=== PATIENT | female | born 1970 | race Caucasian/White ===

== ENCOUNTER → 2018-04-25 17:57 | Outpatient (CLI) | payer OTHER, SELFPAY ==
--- NOTE | 2018-04-25 18:15 | MRI_ITS ---
STUDY: MRI CERVICAL SPINE WITHOUT CONTRAST REASON FOR EXAM: Female, 47 years old. Increasing neck pain, bilat arm numbness(L and gt;R). TECHNIQUE: Standardized fat and water weighted pulse sequences were obtained in the sagittal and axial planes. COMPARISON: November 22, 2016 FINDINGS: Normal foramen magnum and brainstem-cervical cord junction. Normal craniovertebral junction. Normal anterior atlantoaxial articulation. Normal odontoid process. Normal cervical lordosis. Normal vertebral bodies and posterior osseous elements. C2-3: Normal endplates. Normal disc height, signal and morphology. Normal central canal and intervertebral neural foramina. C3-4: There is minimal disc space narrowing and endplate spondylosis. There is a minimal disc osteophyte complex, uncovertebral and facet sonography without significant central canal or foraminal post. Findings are stable since the prior examination. C4-5: There is mild disc space narrowing and endplate spondylosis. There is a minimal disc osteophyte complex, uncovertebral and facet adenopathy without significant central canal or foraminal stenosis. C5-6: There is moderate disc space narrowing and endplate spondylosis. There is minimal disc osteophyte complex and uncovertebral arthropathy without significant central canal or foraminal stenosis. Findings are stable since the prior examination. C6-7: There is moderate disc space narrowing and endplate spondylosis. There is minimal disc osteophyte complex and uncovertebral arthropathy without significant central canal or foraminal stenosis. Findings are stable since the prior examination. C7-T1: Normal endplates. Normal disc height, signal and morphology. Normal central canal and intervertebral neural foramina. Normal cervical cord. Normal visualized soft tissue structures. MRI/Spine Cervical (Routine) IMPRESSION: Stable multilevel degenerative changes. Electronically Signed: Gerda Walton MD at 16:08 EDT Tel , Service support ,
== END ==
LOC: MRI 17:57
PROVIDERS: Family Provider Family Medicine; PCP Family Medicine; Visit Provider Anesthesiology Pain Medicine
DX: M54.2 Cervicalgia (principal); M79.603 Pain in arm, unspecified
CPT/HCPCS: 72141

== ENCOUNTER 2018-08-23 02:53 | Emergency (ER) | payer OTHER, SELFPAY ==
--- NOTE | 2018-08-23 04:27 | MRI_ITS ---
STUDY: MRI LUMBAR SPINE WITHOUT CONTRAST REASON FOR EXAM: Female, 47 years old. Right leg numbness and foot paralysis. TECHNIQUE: Standardized fat and water weighted pulse sequences were obtained in the sagittal and axial planes. COMPARISON: None FINDINGS: T12-L1: Normal endplates. Normal disc height, signal and morphology. Normal bilateral facet joints. Normal central canal and bilateral lateral recesses. Normal bilateral intervertebral neural foramina. There is an exaggerated lumbar lordosis. There is no substantial scoliosis. Normal conus medullaris that terminates at the L1-2: Normal endplates. Normal disc height, signal and morphology. Normal bilateral facet joints. Normal central canal and bilateral lateral recesses. Normal bilateral intervertebral neural foramina. L2-3: Normal endplates. Normal disc height, signal and morphology. Normal bilateral facet joints. Normal central canal and bilateral lateral recesses. Normal bilateral intervertebral neural foramina. L3-4: Normal endplates. Normal disc height, signal and morphology. Normal bilateral facet joints. Normal central canal and bilateral lateral recesses. Normal bilateral intervertebral neural foramina. L4-5: There is mild annular disk bulge and osteophyte complex. There is moderately severe degenerative arthropathy of the facet joints. There is thickening of the ligamentum flavum. Bilateral neuroforamina are narrowed without MR evidence for nerve impingement. There is no significant acquired central canal stenosis. L5-S1: There is mild annular disk bulge and osteophyte complex. There is moderately severe degenerative arthropathy of the facet joints. Bilateral neuroforamina are narrowed without MR evidence for nerve impingement. There is no significant acquired central canal stenosis. Normal visualized sacral ala. Normal visualized paraspinous soft tissue structures. MRI/Spine Lumbar (Routine) IMPRESSION: Multilevel degenerative disc disease and degenerative arthropathy of the lumbar spine with neural foraminal narrowing. There is no definite nerve impingement. Electronically Signed: Floresita Fernandez MD at 5:29 EST , Service support ,
--- NOTE | 2018-08-23 07:10 | ED.DCSUM_ITS ---
- ER Visit Summary Date of Service: 08/23/18 Chief Complaint: Right leg numbness History of Present Illness: The patient is a 47 F who presents with right leg numbness. She had an injection of some sort about 10-12 hours before presentation here. She is not exactly certain what this was. It was done by marty sevilla. She had some right leg numbness afterwards which was attributed to possibly some injection into the nerve. She was told that it should resolve likely by 6 hours. She returned because she still has right leg numbness. She now states that she cannot move her foot or walk. Physical Examination: Afebrile vitals are normal Moist mucous membranes Heart regular rate and rhythm Lungs are clear Patient has 3 out of 5 strength with hip flexion hip extension knee flexion and knee extension on the right she has normal movement with dorsiflexion plantarflexion or extensor hallucis longus she reports only slight pressure sensation with light touch to her foot or leg she states that she could not feel sharp pinprick from the needle and she did not not withdraw has brisk capillary refill and an easily palpable dorsalis pedis pulse Test Results: MRI of the lumbar spine was obtained which shows multilevel degenerative disc disease no definite nerve impingement Emergency Department Course and Treatment: I discussed this patient with Dr. Branham. Apparently the patient had actually hip bursa injections. He notes that it is possible that she got some of the anesthetic into her femoral nerve which could explain her symptoms and recommended supportive care. On reevaluation the patient states she still cannot move her foot however was observed to be able to sit up on the side of the bed and kick her legs back and forth and was witnessed to be moving her foot with dorsiflexion and plantarfle xion. She states she would rather go home when we discussed hospital observation. She will follow-up with her pain management physician and she was discharged. Treatment Plan: [] Disposition: Discharge Impression: Right leg weakness after hip bursa injection This note was generated with [employer] dictation software. It may contain incorrect words, spelling, and punctuation that were not noted in review of the chart prior to signing ED Disposition - Plan for ED Patient: Referrals: Suhail Lambert MD [Primary Care Provider] -
--- NOTE | 2018-08-23 07:10 | ED.DEP ---
ED Disposition - Plan for ED Patient: Referrals: Suhail Lambert MD [Primary Care Provider] - Arpan Branham MD [STAFF PHYSICIAN] -
== END 2018-08-23 07:25 | disposition home or self-care (01) ==
PROVIDERS: Emergency Provider Emergency Medicine; Family Provider Family Medicine; PCP Family Medicine
DX: R29.898 Other symptoms and signs involving the musculoskeletal system (principal); R20.0 Anesthesia of skin
CPT/HCPCS: 72148; 99282

== ENCOUNTER → 2018-10-30 08:16 | Outpatient (CLI) | payer OTHER, SELFPAY ==
[2017-10-06 09:36] VITALS: BMI 42.5
[2018-10-30 09:10] LABS: Amphetamine Urine VISTA NEGATIVE (<1000 ng/mL); Barbiturate Urine VISTA NEGATIVE (< 200 ng/mL); Benzodiazepine Urine VISTA NEGATIVE (< 200 ng/mL); Cocaine Urine VISTA NEGATIVE (< 300 ng/mL); Ecstacy Urine VISTA NEGATIVE (< 500 ng/mL); Methadone Urine VISTA NEGATIVE (< 300 ng/mL); PCP Urine VISTA NEGATIVE (< 25 ng/mL); THC Urine VISTA POSITIVE (< 50 ng/mL); Vista UDS pH Range 6
== END ==
LOC: LAB 08:18
PROVIDERS: Family Provider Family Medicine; PCP Family Medicine; Referring Provider Anesthesiology Pain Medicine; Visit Provider Anesthesiology Pain Medicine
DX: F11.20 Opioid dependence, uncomplicated (principal)
CPT/HCPCS: 80307

== ENCOUNTER → 2019-01-23 | Outpatient (CLI) | payer OTHER, SELFPAY ==
[2017-10-06 09:36] VITALS: BMI 42.5
[2019-01-23 13:24] LABS: Anion Gap 4 (5-15); BUN 12 mg/dL (7-18); BUN/Creat Ratio 14.3 RATIO (10-20); Calcium,Total 8.7 mg/dL (8.5-10.1); Chloride 107 mmol/L (98-107); Cholesterol 160 mg/dL (200); Creatinine, Serum 0.84 mg/dL (0.55-1.02); EST Glomerular Filtration Rate 77 mL/min (>60); Est Glom Filt Rate - Afr Amer 94 mL/min (>60); Glucose 97 mg/dL (74-106); High Density Lipoprotein 59 mg/dL; Potassium 3.7 mmol/L (3.5-5.1); Sodium Level 139 mmol/L (136-145); Thyroid Stim Hormone (TSH) 1.07 uIU/mL (0.358-3.74); Triglycerides 110 mg/dL; Very Low Density Lipoprotein 22 mg/dL (5-40)
== END | disposition home or self-care (01) ==
LOC: MFPLAB 10:23
PROVIDERS: Family Provider Family Medicine; PCP Family Medicine; Referring Provider Family Medicine; Visit Provider Family Medicine
DX: I10 Essential (primary) hypertension (principal); E66.01 Morbid (severe) obesity due to excess calories
CPT/HCPCS: 36415; 80048; 80061; 84443

== ENCOUNTER → 2019-03-26 | Outpatient (CLI) | payer OTHER, SELFPAY ==
[2017-10-06 09:36] VITALS: BMI 42.5
[2019-03-26 10:23] LABS: Absolute Lymphocyte Count 2.42 X10^3/ul (0.83-4.51); Absolute Neutrophil Count 3.3 X10^3/uL (2.0-7.7); Basophil# 0.03 X10^3/uL; Basophil% 0.5 % (0-1); Eosinophil# 0.24 X10^3/uL; Eosinophils% 3.8 % (0-5); Hematocrit 40.2 % (37-47); Lymphocyte # 2.42 X10^3/ul (4.0); Lymphocyte % 37.9 % (19-41); Mean Corp Hgb Conc 32.3 g/gl (32-36); Mean Corpuscular Hgb 27.8 pg (27.0-32.0); Mean Corpuscular Volume 86.1 fL (81-99); Mean Platelet Vol. 11.2 fl (6.2-12.0); Monocyte# 0.41 X10^3/uL; Monocyte% 6.4 % (0-10); Neutrophil # 3.28 X10^3/uL (2.7-7.7); Neutrophil % 51.2 % (47-70); Platelet Count 255 K/mm3 (150-450); RBC Distribution Width CV 14.2 % (11.6-14.6); RBC Distribution Width SD 44.9 fl (35.1-43.9); Red Blood Count 4.67 M/mm3 (4.2-5.4); White Blood Count 6.4 K/mm3 (4.4-11.0)
[2019-03-26 10:27] LABS: POSITIVE COUNT NO; POSITIVE DIFFERENTIAL NO; POSITIVE MORPHOLOGY NO
[2019-03-26 10:41] LABS: AST(SGOT) 15 U/L (15-37); Alanine Aminotransfer ALT/SGPT 24 U/L (13-56); Albumin, Serum 3.3 g/dL (3.2-5.0); Alkaline Phosphatase 61 U/L (45-117); Anion Gap 3 (5-15); BUN 9 mg/dL (7-18); BUN/Creat Ratio 11.2 RATIO (10-20); Bilirubin, Direct 0.13 mg/dL (0.00-0.30); Calcium,Total 8.7 mg/dL (8.5-10.1); Chloride 107 mmol/L (98-107); EST Glomerular Filtration Rate 82 mL/min (>60); Est Glom Filt Rate - Afr Amer 99 mL/min (>60); Globulin 3.5 g/dL (2.2-4.2); Glucose 83 mg/dL (74-106); Protein, Total 6.8 g/dL (6.4-8.2); Sodium Level 137 mmol/L (136-145)
[2019-03-26 11:49] LABS: Hepatitis B Surface Antibody Non-Reactive; Hepatitis B Surface Antigen Non-Reactive (Nonreactive); Hepatitis C Antibody Non-Reactive (Nonreactive)
[2019-03-29 05:07] LABS: QNTFERON TB Mitogen Value > 10.00 IU/mL (.); QNTFERON TB Nil Value 0.02 IU/mL (.); QNTFERON TB1+ Ag Value 0.02 IU/mL (.); QNTFERON TB2+ Ag Value 0.02 IU/mL (.)
[2019-03-29 08:06] LABS: Hepatitis B Core AB IgM Negative (Negative); QNTIFERON TB Positive Criteria Negative (Negative)
== END | disposition home or self-care (01) ==
LOC: MTLAB 09:10
PROVIDERS: Family Provider Family Medicine; PCP Family Medicine; Referring Provider Nurse Practitioner Family; Visit Provider Nurse Practitioner Family
DX: L40.0 Psoriasis vulgaris (principal); Z79.899 Other long term (current) drug therapy
CPT/HCPCS: 36415; 80048; 80076; 85025; 86480; 86705; 86706; 86803; 87340

== ENCOUNTER → 2019-04-02 | Outpatient (CLI) | payer OTHER, SELFPAY ==
[2017-10-06 09:36] VITALS: BMI 42.5
--- NOTE | 2019-04-02 09:11 | RAD_ITS ---
STUDY: X-RAY - PELVIS REASON FOR EXAM: Female, 48 years old. Hip arthrosis, right greater than left TECHNIQUE: 2 frontal views of the pelvis were performed COMPARISON: None. FINDINGS: The bones of the pelvis are intact and located. There are moderate right and mild left degenerative hip changes. There is bilateral loss of femoral head sphericity with abnormal head neck junctions. SI joints are intact. There is no intestinal obstruction. Mineralization is normal. RAD/Pelvis 1 or 2 Views IMPRESSION: 1. Bilaterally abnormal hips, possible CAM impingement. Orthopedic referral is advised. Electronically Signed: Gio Sousa, at 19:35 EDT Tel , Service support ,
== END | disposition home or self-care (01) ==
LOC: RAD 09:08
PROVIDERS: Family Provider Family Medicine; PCP Family Medicine; Referring Provider Chiropractor; Visit Provider Chiropractor
DX: M16.0 Bilateral primary osteoarthritis of hip (principal)
CPT/HCPCS: 72170

== ENCOUNTER → 2019-11-01 14:38 | Outpatient (CLI) | payer OTHER, SELFPAY ==
[2019-11-01 14:30] VITALS: BMI 42.5
--- NOTE | 2019-11-01 14:39 | RAD_ITS ---
STUDY: X-RAY - LUMBOSACRAL SPINE REASON FOR EXAM: Female, 48 years old. Pain. TECHNIQUE: 6 view(s) of the lumbosacral spine were obtained. COMPARISON: None FINDINGS: Normal lumbar lordosis. There is a levoscoliosis of the convexity at L2-3. There is mild anterolisthesis of L4 on L5 and L5 on S1. The alignment is otherwise preserved. There is no alteration in alignment with flexion or extension both of which appear minimal. Normal vertebral bodies and endplates. Normal disc space heights. No spine fracture. There is diffuse degenerative facet disease. Normal bilateral sacral ala, sacroiliac joints, and visualized sacrum. Normal visualized soft tissue structures. RAD/L/S Spine Comp/w Bending Views IMPRESSION: Scoliosis and degenerative changes of the lumbar spine. Electronically Signed: Slick De Guzman DO at 21:31 EST Tel [phone], Service support ,
--- NOTE | 2019-11-01 14:39 | RAD_ITS ---
STUDY: X-RAY - PELVIS AND RIGHT HIP REASON FOR EXAM: Pain. TECHNIQUE: 2 views of the pelvis and hip. COMPARISON: Radiographs 04/02/2019. FINDINGS: Normal visualized soft tissue structures. Normal bilateral iliac wings, sacroiliac joints and visualized sacrum. Normal bilateral superior and inferior pubic rami. Normal pubic symphysis. Normal bilateral ischial tuberosities. There is severe joint space loss at the superior aspect of the right hip joint with marginal osteophytes of the right femoral head and subchondral cystic change/eburnation. There is also advanced arthrosis of the contralateral left hip. RAD/HIP, UNI W/ Pelvis 2-3 Views IMPRESSION: Advanced right hip arthrosis. Electronically Signed: Ankush Jacobson MD at 10:29 EST Tel , Service support ,
== END ==
LOC: HPRAD 14:39
PROVIDERS: PCP Family Medicine; Referring Provider Orthopaedic Surgery; Visit Provider Orthopaedic Surgery
DX: M54.5 Low back pain (principal); M25.551 Pain in right hip
CPT/HCPCS: 72114; 73502

== ENCOUNTER → 2020-01-21 14:54 | Outpatient (CLI) | payer OTHER, SELFPAY ==
[2020-01-21 12:16] VITALS: BMI 43.2
[2020-01-21 18:11] LABS: Anion Gap 6 (5-15); BUN 14 mg/dL (7-18); BUN/Creat Ratio 17.2 RATIO (10-20); Chloride 105 mmol/L (98-107); Cholesterol 167 mg/dL (200); Creatinine, Serum 0.81 mg/dL (0.55-1.02); EST Glomerular Filtration Rate 80 mL/min (>60); Est Glom Filt Rate - Afr Amer 97 mL/min (>60); Glucose 93 mg/dL (74-106); High Density Lipoprotein 54 mg/dL; Potassium 3.9 mmol/L (3.5-5.1); Sodium Level 138 mmol/L (136-145); Thyroid Stim Hormone (TSH) 0.75 uIU/mL (0.358-3.74); Triglycerides 85 mg/dL; Very Low Density Lipoprotein 17 mg/dL (5-40)
== END ==
LOC: MFPLAB 14:55
PROVIDERS: PCP Family Medicine; Visit Provider Family Medicine
DX: I10 Essential (primary) hypertension (principal); E66.01 Morbid (severe) obesity due to excess calories
CPT/HCPCS: 36415; 80048; 80061; 84443

== ENCOUNTER 2020-03-12 13:00 | Outpatient (RCR) | payer OTHER, SELFPAY ==
[2020-01-21 12:16] VITALS: BMI 43.2
--- NOTE | 2020-01-22 14:03 | HP.PTEVAL ---
Patient's Visit Information JANNETTE VIEIRA is a 49 year old F referred to Physical Therapy by Dr. Denice Cutler DO with a diagnosis of R hip pain. Date of Evaluation: 01/22/20 Physical Therapist: Vadim Calderon, DPT, OCS, CSCS - Visit Plan Frequency: 3x /Week Duration: 4-6 Weeks Plan: 3x/week for 4-6 weeks for pool based. hip strength emphasizing IR adn adduction, hip stabs, core strength, stretch HS, adductors, external rotators and postural focus/gait training. Progress to I in pool as exit strategy as patient requires hip surgery but not sure when it will occur. - Subjective Dr. Cutler sent over. B hip pain for a number of years. Sent to Dr. Rodriguez by [facility]. Both hips are degenerating really bad. No cartilage left on the right side. Walking changes have made LB and neck hurt. Doctor said she needed to lose weight adn do physical therapy. Gait has always been off. R hip is most painful and needs surgery there. Wants to get healthy first.Hard to get up off toilet. Can only lie on stomach. Pain is on side of hip and up into LB and in groin. Hard to lift leg to get into car. Pain is worse with temperature drop today and with period. 9/10 crushing paina nd sometime it wants to go out. Sitting is just a tinge of pain, sitting alot and getting up will ache. L leg feels longer adn knee can lock up. Morning after sleeping is worse. Is on medical marijuana. Sleeps one hour at atime. Would like to get 6 hours solid. Has had injections in hip before and it helps. Swimming really helps. Feels better in the pool in the summer. Can't do steps unless she has to. Better in good weather. Not employed. Needs to take care of self. - Pain R hip Pain Intensity (Out of 10): 1 Pain Intensity Range: 1, 9 - Objective Walks slowly and with B trendelenberg and massive external rotation at hips. Trasnfers slowly out of chair appearing stiff adn needing to use UE. Supine table transfers slow but I. Stiff all over. HS mod tight B at -25 90/90 test. Abduction to 15 B. Unable to touch knees together actively in sitting. LB AROM min deficits in all directions and stiff but no pain. AROM hips external rotation hypermobile adn IR barely to neutral and very weak. flexion to 90 active adn 120 passive. Passive IR to neutral only and very painful, exteernal rotation fulla dn without pain. ext to neutral only B. reflexes 1/3 patella and achilles. Sensation LE WNL to gross light touch. Strength hip IR 3-, ext rotation 3+ B, flexion 3- R and 4- L, ext 3 B. Knee ext adn flexion 4- B. ankle strength 3+ B inv/ev/DF. + FADDIR R>L, slight pain with PARMINDER OP B. - Goals Goal 1:: Pt feel pain 0-3/10 at worst adn 70% better r hip pain. Goal Time Frame: 4-6 Weeks Goal 2:: Sleep without interruption for 4 hours. Goal Time Frame: 4-6 Weeks Goal 3:: Steps reciprocally with one rail without increased pain. Goal Time Frame: 4-6 Weeks Goal 4:: I approp HEP to [facility] to be able to have surgery needed. Goal Time Frame: 4-6 Weeks - Rehabilitation Potential Physical Therapy Diagnosis: R hip pain requiring surgery and needs strength, ROM and gait training. Rehabilitation Potential: Fair - Anticipated Interventions Patient/Client Instruction: Educate patient on: Condition, Plan of Care For the Purpose of:: To decrease pain, To increase ROM, To improve muscle performance and motor function, To increase tolerance to activity/condition/position, To improve ability of physical actions for home/community/work/leisure, To improve gait and locomotor functions Therapeutic Exercise to Include: Strength training, Postural training, Flexibilty training, Gait and locomotor training, In an aquatic setting, Passive ROM, Active ROM For the Purpose of:: To decrease pain, To increase ROM, To improve muscle performance and motor function, To increase tolerance to activity/condition/position, To improve ability of physical actions for home/community/work/leisure, To improve gait and locomotor functions Thank you for the opportunity to evaluate your patient. For Medicare and Medicare HMO plans, please review the plan of care and approve it. It will need to be FAXED BACK to us at [phone] for Medicare purposes. For Medicare only, by signing this I certify the plan of care. Please let me know if there are questions or concerns regarding this plan of care. Physician Signature: Date:
--- NOTE | 2020-02-12 11:33 | HP.PTREVAL ---
Dr. Denice Cutler, DO, It has been my pleasure to treat JANNETTE VIEIRA over the last 10 visits for R hip pain. Please see the progress note below for an update on the physical therapy plan of care! Subjective: Better. On period today so is a little worse then has been. But overall very happy with progress and needs more. LB feels better, circulation is better. Able to go up steps 2x at home which is a huge improvement. Pain in last 4 days was 6/10 at worst with weather change. Yesterday was best it felt and was minimal pain and better mechanics. Sleep is better with activity but overall sleep is never great. Objective/Function: Walks with very little antalgia but still wide AILYN. Gets up from chair with UE and smoother than previously. Stiff at first walking but smooths out nicely. ROM not vastly different than eval. strenth in hips at 4- abd and ext and 4 felxion, 4 knee flexion and ext B. PROGRESS IS SLOW BUT STEADY. APPROPRIATE TO CONTINUE WITH FAIR PROGNOSIS. Plan Plan: 3X/WEEK FRO 3-4 WEEKF TO CONTINUE POOL, WORK ON HIP rom AND STRETCHING, CORE AND le STRENGTH AND PROGRESS TO I POOL PROGRAM. POSSIBLE LAND AFTER NEXT SESSION OF POOL DEPENDING ON SURGERY. Goals Goal 1:: Pt feel pain 0-3/10 at worst adn 70% better r hip pain. Goal Time Frame: 4-6 Weeks Goal Progress: Progressing Goal 2:: Sleep without interruption for 4 hours. Goal Time Frame: 4-6 Weeks Goal Progress: nconsistent Goal 3:: Steps reciprocally with one rail without increased pain. Goal Time Frame: 4-6 Weeks Goal Progress: 2 rails today, progress. Goal 4:: I approp HEP to progresss trength to be able to have surgery needed. Goal Time Frame: 4-6 Weeks Goal Progress: Progressing Goal 5:: 35/80 LEFS to show improved function. Goal Time Frame: 2-4 Weeks Goal Progress: NEW GOAL Goal 6:: Exit chair without UE I Goal Time Frame: 2-4 Weeks Goal Progress: NEW GOAL Anticipated Interventions Patient/Client Instruction: Educate patient on: Condition, Plan of Care For the Purpose of:: To decrease pain, To increase ROM, To improve muscle performance and motor function, To increase tolerance to activity/condition/position, To improve ability of physical actions for home/community/work/leisure, To improve gait and locomotor functions Therapeutic Exercise to Include: Strength training, Postural training, Flexibilty training, Gait and locomotor training, In an aquatic setting, Passive ROM, Active ROM For the Purpose of:: To decrease pain, To increase ROM, To improve muscle performance and motor function, To increase tolerance to activity/condition/position, To improve ability of physical actions for home/community/work/leisure, To improve gait and locomotor functions Please do not hesitate to contact me at [phone] by phone or if you have questions or concerns regarding this new plan of care! Sincerely, Vadim Calderon, DPT, OCS, CSCS
--- NOTE | 2020-03-12 13:35 | HP.PTDCSUM_ITS ---
It has been my pleasure to treat JANNETTE VIEIRA referred by Dr. Denice Cutler DO, with the diagnosis of R hip pain for a total of 20 visit(s). Discharge Date: 03/12/20 Please see the following information for a summary of their discharge status. Subjective: Muscles are more usable but they hate me. Able to do more things that she has not done in a while especially sexually. Things are going the right way. Missed a couple appointments due to father dying(had to pickling [employer] today). Doing some home exercises from [place] also. Knows pool is helpful and has lost 8 # total. Muscles still get sore often especially in larger leg muscles. More csious of biomechanics. Sleep is not great but that is normal for her. Hip and sacrum R are worst of pain. Will contact Dr. Rodriguez for f/u. R hip Pain Intensity (Out of 10): 7 Lumbar Spine Pain Intensity (Out of 10): 7 LLE Pain Intensity (Out of 10): 2 % Improvement: 40 Objective/Function: 8 min late. Walks with wide AILYN but can do narrow BOSwith V C. Needs UE to exit chair, needs rail on step and prefers R. Still very slow getting around and admits she could ex herself at local pool but it would be hard Goal 1:: Pt feel pain 0-3/10 at worst adn 70% better r hip pain. Goal Progress: muscle pain. Goal 2:: Sleep without interruption for 4 hours. Goal Progress: Not Progressing Goal 3:: Steps reciprocally with one rail without increased pain. Goal Progress: Not Progressing Goal 4:: I approp [facility]P to [facility] to be able to have surgery needed. Goal Progress: [place] Goal 5:: 35/80 LEFS to show improved function. Goal Progress: Not Progressing Goal 6:: Exit chair without UE I Goal Progress: Not Progressing Plan: Pt to contact doctor regarding f/u for other options as improvement is slow. Still to ex in [place] community and call if concerns. Discharge Comments: Pt to schedule with docotor adn continue in community pool I. If there are questions or concerns regarding this patient's physical therapy, please feel free to call me at [phone]. Thank you for the referral of this patient. Sincerely, Vadim Calderon, DPT, OCS, CSCS
== END 2020-03-12 19:00 | disposition home or self-care (01) ==
LOC: PT 13:00
PROVIDERS: PCP Family Medicine; Referring Provider Orthopaedic Surgery; Visit Provider Orthopaedic Surgery
DX: M16.11 Unilateral primary osteoarthritis, right hip (principal); M54.10 Radiculopathy, site unspecified
CPT/HCPCS: 97113; 97162; 97164

== ENCOUNTER → 2020-03-18 09:25 | Outpatient (CLI) | payer OTHER, SELFPAY ==
[2020-01-21 12:16] VITALS: BMI 43.2
[2020-03-18 12:06] LABS: Absolute Lymphocyte Count 2.76 X10^3/uL (0.83-4.51); Absolute Neutrophil Count 2.8 X10^3/uL (2.0-7.7); Basophil# 0.07 X10^3/uL; Basophil% 1.1 % (0-1); Eosinophil# 0.37 X10^3/uL; Eosinophils% 5.7 % (0-5); Hematocrit 40.7 % (37-47); Lymphocyte # 2.76 X10^3/ul (4.0); Lymphocyte % 42.2 % (19-41); Mean Corp Hgb Conc 31.9 g/dL (32-36); Mean Corpuscular Hgb 28.4 pg (27.0-32.0); Mean Corpuscular Volume 89.1 fL (81-99); Mean Platelet Vol. 11.8 fl (6.2-12.0); Monocyte# 0.53 X10^3/uL; Monocyte% 8.1 % (0-10); NRBC Flagged by Analyzer 0 % (0-5); Neutrophil # 2.79 X10^3/uL (2.7-7.7); Neutrophil % 42.6 % (47-70); Platelet Count 245 K/mm3 (150-450); RBC Distribution Width CV 13.8 % (11.6-14.6); RBC Distribution Width SD 44.2 fl (35.1-43.9); Red Blood Count 4.57 M/mm3 (4.2-5.4); White Blood Count 6.5 K/mm3 (4.4-11.0)
[2020-03-18 12:22] LABS: ALB/GLOB Ratio 1.1 RATIO (0.9-2.4); AST(SGOT) 15 U/L (15-37); Alanine Aminotransfer ALT/SGPT 26 U/L (13-56); Albumin, Serum 3.6 g/dL (3.2-5.0); Alkaline Phosphatase 60 U/L (45-117); Anion Gap 4 (5-15); BUN 13 mg/dL (7-18); BUN/Creat Ratio 17.2 RATIO (10-20); Calcium,Total 8.9 mg/dL (8.5-10.1); Chloride 106 mmol/L (98-107); Creatinine, Serum 0.76 mg/dL (0.55-1.02); EST Glomerular Filtration Rate 87 mL/min (>60); Est Glom Filt Rate - Afr Amer 105 mL/min (>60); Globulin 3.4 g/dL (2.2-4.2); Glucose 90 mg/dL (74-106); Potassium 3.7 mmol/L (3.5-5.1); Sodium Level 138 mmol/L (136-145)
[2020-03-21 12:07] LABS: QNTFERON TB Mitogen Value > 10.00 IU/mL (.); QNTFERON TB Nil Value 0.02 IU/mL (.); QNTFERON TB1+ Ag Value 0.02 IU/mL (.); QNTFERON TB2+ Ag Value 0.02 IU/mL (.)
[2020-03-21 14:57] LABS: QNTIFERON TB Positive Criteria Negative (Negative)
== END ==
PROVIDERS: PCP Family Medicine; Referring Provider Physician Assistant; Visit Provider Physician Assistant
DX: L40.0 Psoriasis vulgaris (principal); Z79.899 Other long term (current) drug therapy
CPT/HCPCS: 36415; 80053; 85025; 86480

== ENCOUNTER 2020-04-08 10:04 | Outpatient (RCR) | payer OTHER, SELFPAY ==
[2020-03-27 09:21] VITALS: BMI 43.2
== END 2020-04-08 19:00 | disposition home or self-care (01) ==
LOC: PT 10:04
PROVIDERS: PCP Family Medicine; Referring Provider Orthopaedic Surgery; Visit Provider Orthopaedic Surgery
DX: Z00.00 Encounter for general adult medical examination without abnormal findings (principal)

== ENCOUNTER 2020-05-15 13:30 | Outpatient (RCR) | payer OTHER, SELFPAY ==
[2020-03-27 09:21] VITALS: BMI 43.2
--- NOTE | 2020-04-03 08:45 | HP.PTEVAL_ITS ---
Patient's Visit Information JANNETTE VIEIRA is a 49 year old F referred to Physical Therapy by Dr. Denice Cutler DO with a diagnosis of R hip OA. Date of Evaluation: 04/02/20 Physical Therapist: Franki Presley DPT - Visit Plan Frequency: 2x /Week Duration: 6 Weeks Plan: Start with ROM, strengthening, gait and aerobic fitness in aquatic setting. Focus being strengthening and R hip ROM, but also in attempt to educate on wt. lose through exercise. Pt. has started intermittent fasting as well. - Subjective Pt. is here today for her initial evaluation with diagnosis of R hip OA. Pt. reports having increased R hip pain both laterally and in groin with walking and with getting up after prolonged sitting. Pt. reports that she really needs to have a R MAKAYLA and is scheduled to see Dr. Gamble in May. Her physician would like her to continue to strength and lose wt. in order to promote better outcome as she is pretty deconditioned due to her limited tolerance to mobility with her hip. Pt. reports difficulty with walking, standing, sleeping. She has been doing some aquatic exercises on her own, but reports accessibility to pool is difficult. Pt. is hopeful to increase strength, ROM and decrease some pain in order to get ready for potential R MAKAYLA, but is also increase my quality of life. - Pain R hip Pain Intensity (Out of 10): 4 Pain Intensity Range: 3, 8 - Objective POSTURE: Pt. has sway back posture in stance. Pt. has L lateral lean with R hip ER positioning. Pt. attempts to off load RLE when able. PALPATION: Pt. has increased post/lateral pain (piriformis and greater trochanter pain), pt. has C sign pain as well. NEURO: normal bilaterally, normal sensation and normal DTR bilaterally. ROM: L hip: flexion 110deg, abd 45deg, ER 30deg, IR 15deg. R hip- flexion 90deg, abd 30deg, ext- neutral, ER 30deg, IR 0. Pt. is very tight and rigid inlcuding pain with any rotation of R hip. MMT: LLE- 5/5 throughout, ext 4/5 hip abd. RLE- ankle 5/5 throughout; knee 5-/5 throughout; R hip- flexion 4/5, abd 4/5, ext 4/5 (minimal motion), ER/IR not tested. GAIT: Pt. ambulates without AD, but has very antalgic pattern. Minimal R hip extension noted, has increased trunk rotation to make up for this. She has limited hi flexion of RLE as well. Pt. reports increased pain in R hip throughout gait cycle. STAIRS: step up pattern loading LLE only, use of BHR. - Special Tests R Hip Scour: Positive R Hip PARMINDER - Intraarticular Pathology: Positive R Hip FADDIR - Labrum: Positive - Goals Goal 1:: LTG: Pt. to be I with HEP. Goal Time Frame: 4-6 Weeks Goal 2:: LTG: Pt. to walk with improved pattern with 0-2/10 pain in R hip. Goal Time Frame: 4-6 Weeks Goal 3:: STG: Pt. to sleep throughout the night without increase in symptoms. Goal Time Frame: 2-4 Weeks Goal 4:: LTG: Pt. to have increased RLE strength by 1/2 grade of all effected m usculature. Goal Time Frame: 4-6 Weeks Goal 5:: LTG: Pt. to have increased R hip ROM by 25% allowing for better ROM outcomes with surgical intervention. Goal Time Frame: 4-6 Weeks - Rehabilitation Potential Physical Therapy Diagnosis: Pt. has signs and symptoms consistent with R hip OA. Pt. has marked hypombility, marked RLE weakness and difficulty with gait. Pt. reports relief with aquatic exercises, but has had increased pain since stopping the exercises. Pt. is hopeful to reduce symptoms in order to get ready for potential hip replacement later this year. Rehabilitation Potential: Good - Anticipated Interventions Patient/Client Instruction: Educate patient on: Condition, Plan of Care, Risk Factors, Benefits of Fitness Program For the Purpose of:: To improve health and function, To foster healthy habits, To improve decision making, To facilitate caregiver knowledge, To improve self management, To prevent re-injury, To improve ability to perform tasks related to life management, To improve tolerance to ADL's Therapeutic Exercise to Include: Strength training, Endurance training, Balance training, Coordination, Body mechanics, Flexibilty training, Gait and locomotor training, In an aquatic setting, Passive ROM, Active ROM, Dynamic Lumbar Stabilization For the Purpose of:: To decrease pain, To decrease swelling/inflammation, To increase ROM, To improve nutrient delivery to tissue, To increase oxygenation perfusion, To improve muscle performance and motor function, To improve ability to perform ADL's, To improve gait and locomotor functions, To improve health of tissue, To decrease soft tissue restriction, To increase flexibility/ROM, To improve endurance, To improve balance Thank you for the opportunity to evaluate your patient. For Medicare and Medicare HMO plans, please review the plan of care and approve it. It will need to be FAXED BACK to us at [phone] for Medicare purposes. For Medicare only, by signing this I certify the plan of care. Please let me know if there are questions or concerns regarding this plan of care. Physician Signature: Date:
== END 2020-05-15 19:00 | disposition home or self-care (01) ==
LOC: PT 13:30
PROVIDERS: PCP Family Medicine; Referring Provider Orthopaedic Surgery; Visit Provider Orthopaedic Surgery
DX: M16.11 Unilateral primary osteoarthritis, right hip (principal)
CPT/HCPCS: 97113; 97161

== ENCOUNTER → 2020-06-06 07:05 | Outpatient (CLI) | payer OTHER, SELFPAY ==
[2020-05-28 08:16] VITALS: BMI 35.9
--- NOTE | 2020-06-06 07:06 | CT_ITS ---
STUDY: CT SCAN RIGHT LOWER EXTREMITY RIGHT REASON FOR EXAM: Female, 49 years old. Right hip pain, Patrice plasty planning, right hip osteoarthritis. RADIATION DOSAGE (If Supplied By Facility): CTDIvol = ( 14.07 ) mGy, DLP = ( 934.89 ) mGycm. Individualized dose optimization techniques were used for this CT.? TECHNIQUE: Multiple axial tomographic images of the right hip and right knee were obtained. Coronal and sagittal reconstruction was obtained. COMPARISON: None. FINDINGS: Marked degree of joint space narrowing and osteoarthritis involving the right hip joint with a subchondral cystic changes as well as small cystic changes in the superior lateral aspect of the acetabulum. There is evidence of a degenerative spur formation along the medial and lateral aspects of the femoral head as well as the spur along the superior lateral aspect of the acetabulum. Similar changes are seen in the left hip joint. Limited imaging of the knee joint demonstrates no significant abnormalities. CT/Extremity Lower without Contra IMPRESSION: Marked degree of joint space narrowing and degenerative changes involving both hip joints worse on the right side. Electronically Signed: Yusef Trinidad, at 8:11 EDT , Service support ,
== END ==
PROVIDERS: PCP Family Medicine; Referring Provider Orthopaedic Surgery; Visit Provider Orthopaedic Surgery
DX: M16.11 Unilateral primary osteoarthritis, right hip (principal)
CPT/HCPCS: 73700

== ENCOUNTER 2020-06-24 05:20 | Day surgery (SDC) | payer OTHER, SELFPAY ==
[2020-05-28 08:16] VITALS: BMI 35.9
--- NOTE | 2020-05-28 08:25 | HP_ITS ---
Intake Vital Signs 05/28/20 Height 5 ft 10 in 05/28/20 Weight: 250 lb 05/28/20 Weight: 250 lb 05/28/20 BMI 43.2 Intake Visit Reasons: RIGHT HIP Accompanied by: Self Is patient in pain?: Yes Pain scale (1-10): 8 Allergies codeine Allergy (Verified 05/28/20 08:08) Hives Medications lisinopril 10 mg-hydrochlorothiazide 12.5 mg tablet 1 tab PO DAILY tab 05/28/20 [History Confirmed 05/28/20] omeprazole 40 mg capsule,delayed release ea PO 05/28/20 [History Confirmed 05/28/20] PFSH Medical History (Updated 10/06/17 @ 09:44 by Alicia Nicolas) Hypertension (Chronic) Surgical History (Updated 10/06/17 @ 09:44 by Alicia Nicolas) History of appendectomy (Inactive) Social History (Updated 05/28/20 @ 10:[address] Sidney Hernández DO) Smoking Status: Former smoker quit date: 09/19/00 alcohol intake: current HPI RIGHT HIP: Surgical H&P: Yes Details: Parts of this documentation were recorded by a scribe, this documentation accurately reflects the service provided and the decisions made by me, Dr. Sidney Hernández DO 05/28/20 0753. JANNETTE VIEIRA is a 49 year old F here today to discuss surgery for her right hip. Pain has been ongoing for years. Patient has been going to physical therapy, stretching for four months as well as working on her weight loss. Patient has been successful with her weight loss. Pain is located lateral, deep glute. Previously has tried steroid injections. ROS Musc Reports system reviewed and no additional complaints, except as docu, Reports abnormal walking, Reports joint pain, Reports back pain, Reports joint swelling, Denies numbness, Reports radiating pain into limb, Reports stiffness Skin/Breast Reports system reviewed and no additional complaints, except as docu, Denies dry skin, Denies redness, Denies lesions, Denies new lesions, Denies non-healing lesions, Denies itching, Denies rash, Denies skin ulcer, Denies sores, Denies skin swelling, Denies wounds Neuro Yes system reviewed and no additional complaints, except as docu, Yes abnormal walking, No numbness Ortho Exam Right Hip Skin: No Ecchymosis, No soft tissue swelling, No Erythema internal rotation @90 degree flexion: 0 degrees external rotation @90 degree extension: 80 degrees Special Tests: Yes TTP Greater Troch, No TTP Greater sciatic notch HIP: Skin is intact without concerning lesions erythema or ecchymosis or mass upper groin pain with zero degrees internal rotation. 80 external rotation with lateral pain weakness withHip flexion unable to flex hip against gravity intactSensation to light sensation 2 out of 4 pedal pulse Supplemental Info 11/01/2019X-ray right hip:Advanced right hip arthrosis with [id number] superiorly subchondral sclerosis and marginal osteophytes Assessment & Plan Problems 1. Primary osteoarthritis of right hip M16.11 Plan Educated patient has quite a bit of arthritis present and bursitis. Advised patient would benefit from surgical intervention. May still have stiffness even after surgery. Educated about the implant and MAKOplasty robotic arm for surgery. Discussed and educated on hip precautions for 3 months post op. Discussed risks of surgery: s/s of infection and blood clot. Recovery period 2-3 months you often feel better than before surgery and improve for up to a year. After surgery will wear compression stockings, taking a blood thinner, and avoiding NSAIDS. Can take Tylenol instead. Will also order therapy after surgery. Will take ATB's prophylactically for life before any dental work. Can swim again after three weeks after surgery. All questions answered. Patient in agreement of plan. 1. This patient has exhausted all conservative/nonoperative treatment measures to include physical therapy, epidural steroid injections and medications therefore we will recommend surgical intervention. 2. Over 30 minutes was spent in consultation with this patient. 4. The patient will obtain preoperative medical lab work, EKG and chest x-ray at a schedule pre-admission testing visit. 5. All questions were answered. The procedure was discussed in detail with the use of plastic models. Surgical consent was signed and reviewed. The patient verbalized understanding and agreed to comply with the treatment plan formulated. Risks, benefits and alternatives of surgery reviewed including but not limited to bleeding, infection, nerve, artery and/or tissue damage, fracture, VTE, leg length discrepancy, dislocation, need for hip precautions, continued pain and expected post-operative course. Coding Level of Care Code Off vis,est,level 3 Diagnoses Primary osteoarthritis of right hip M16.11 ??Osteoarthritis type: primary 05/28/20 1037 <Electronically signed by Sidney Borrus o DO> Date _ Sidney Hernández DO
--- NOTE | 2020-06-16 08:30 | EKG12_ITS ---
Test Reason : PRE OP Blood Pressure : / mmHG Vent. Rate : 078 BPM Atrial Rate : 078 BPM P-R Int : 122 ms QRS Dur : 082 ms QT Int : 384 ms P-R-T Axes : 024 017 055 degrees QTc Int : 437 ms Normal sinus rhythm with sinus arrhythmia Low voltage QRS Borderline ECG Confirmed by AMY RUSSELL, PURA ([id number]), associate entertainment editor THOMAS OSEI ([id number]) on 06/17/2020 11:23:22 AM Referred By: Sidney Hernández Confirmed By:PURA REYES MD
[2020-06-16 09:31] LABS: Absolute Lymphocyte Count 2.27 X10^3/uL (0.83-4.51); Absolute Neutrophil Count 2.9 X10^3/uL (2.0-7.7); Basophil# 0.04 X10^3/uL; Basophil% 0.7 % (0-1); Eosinophil# 0.25 X10^3/uL; Eosinophils% 4.2 % (0-5); Hematocrit 40.1 % (37-47); Hemoglobin 12.6 g/dL (12.0-15.0); Lymphocyte # 2.27 X10^3/ul (4.0); Lymphocyte % 38.1 % (19-41); Mean Corp Hgb Conc 31.4 g/dL (32-36); Mean Corpuscular Hgb 27.6 pg (27.0-32.0); Mean Corpuscular Volume 87.9 fL (81-99); Mean Platelet Vol. 12.1 fl (6.2-12.0); Monocyte# 0.51 X10^3/uL; Monocyte% 8.6 % (0-10); NRBC Flagged by Analyzer 0 % (0-5); Neutrophil # 2.88 X10^3/uL (2.7-7.7); Neutrophil % 48.2 % (47-70); Platelet Count 229 K/mm3 (150-450); RBC Distribution Width CV 14.5 % (11.6-14.6); RBC Distribution Width SD 47.2 fl (35.1-43.9); Red Blood Count 4.56 M/mm3 (4.2-5.4)
[2020-06-16 09:43] LABS: Partial Thromboplast Time 27.1 Seconds (24.1-36.2); Prothrombin Time (Protime)PT. 12.9 SECONDS (11.7-14.9)
[2020-06-16 10:18] LABS: Anion Gap 5 (5-15); BUN 15 mg/dL (7-18); BUN/Creat Ratio 19.8 RATIO (10-20); Calcium,Total 8.9 mg/dL (8.5-10.1); Chloride 104 mmol/L (98-107); Creatinine, Serum 0.76 mg/dL (0.55-1.02); EST Glomerular Filtration Rate 87 mL/min (>60); Est Glom Filt Rate - Afr Amer 105 mL/min (>60); Glucose 89 mg/dL (74-106); Potassium 3.4 mmol/L (3.5-5.1); Sodium Level 138 mmol/L (136-145)
[2020-06-16 10:23] LABS: Magnesium 2.2 mg/dL (1.6-2.6)
[2020-06-24] VITALS (15 sets, daily range): BP systolic 89–105; BP diastolic 56–70; PULSE 51–96; RESP 14–18; TEMP 35.6–37; O2SAT 97–100; BMI 34.8
[2020-06-24 05:46] LABS: Internal QC Validated? YES +Cl - CLEAR BKGD; Pregnancy, Urine Negative Negative
[2020-06-24] MEDS: Lactated Ringers 1,000 ML 100 ML IV (06:00)
[2020-06-24] MEDS: Lactated Ringers 1,000 ML 125 ML IV (06:00)
[2020-06-24] MEDS: Lactated Ringers 1,000 ML 999 ML IV (06:25)
[2020-06-24] MEDS: Acetaminophen 500 MG Tablet 1000 MG PO (06:32)
[2020-06-24] MEDS: Celecoxib 200 MG Capsule 400 MG PO (06:33)
[2020-06-24] MEDS: Gabapentin 600 MG Tablet PO (06:33)
[2020-06-24] MEDS: Scopolamine 1mg/72hr Patch 1 PATCH TRANSDERM. (06:34)
[2020-06-24 06:55] LABS: Bedside Glucose 80 mg/dL (70-110)
--- NOTE | 2020-06-24 07:23 | PCM.HP.BLA ---
History and Physical Date of Admission: 06/24/20 Intake Vital Signs 05/28/20 Height 5 ft 10 in 05/28/20 Weight: 250 lb 05/28/20 Weight: 250 lb 05/28/20 BMI 43.2 Intake Visit Reasons: RIGHT HIP Accompanied by: Self Is patient in pain?: Yes Pain scale (1-10): 8 Allergies codeine Allergy (Verified 05/28/20 08:08) Hives Medications lisinopril 10 mg-hydrochlorothiazide 12.5 mg tablet 1 tab PO DAILY tab 05/28/20 [History Confirmed 05/28/20] omeprazole 40 mg capsule,delayed release ea PO 05/28/20 [History Confirmed 05/28/20] ON LICENSE OF [facility] Medical History (Updated 10/06/17 @ 09:44 by Alicia Nicolas) Hypertension (Chronic) Surgical History (Updated 10/06/17 @ 09:44 by Alicia Nicolas) History of appendectomy (Inactive) Social History (Updated 05/28/20 @ 10:[address] Sidney Hernández DO) Smoking Status: Former smoker quit date: 09/19/00 alcohol intake: current HPI RIGHT HIP: Surgical H&P: Yes Details: Parts of this documentation were recorded by a scribe, this documentation accurately reflects the service provided and the decisions made by me, Dr. Sidney Hernández DO 05/28/20 0753. JANNETTE VIEIRA is a 49 year old F here today to discuss surgery for her right hip. Pain has been ongoing for years. Patient has been going to physical therapy, stretching for four months as well as working on her weight loss. Patient has been successful with her weight loss. Pain is located lateral, deep glute. Previously has tried steroid injections. ROS Musc Reports system reviewed and no additional complaints, except as docu, Reports abnormal walking, Reports joint pain, Reports back pain, Reports joint swelling, Denies numbness, Reports radiating pain into limb, Reports stiffness Skin/Breast Reports system reviewed and no additional complaints, except as docu, Denies dry skin, Denies redness, Denies lesions, Denies new lesions, Denies non-healing lesions, Denies itching, Denies rash, Denies skin ulcer, Denies sores, Denies skin swelling, Denies wounds Neuro Yes system reviewed and no additional complaints, except as docu, Yes abnormal walking, No numbness Ortho Exam Right Hip Skin: No Ecchymosis, No soft tissue swelling, No Erythema internal rotation @90 degree flexion: 0 degrees external rotation @90 degree extension: 80 degrees Special Tests: Yes TTP Greater Troch, No TTP Greater sciatic notch HIP: Skin is intact without concerning lesions erythema or ecchymosis or mass upper groin pain with zero degrees internal rotation. 80 external rotation with lateral pain weakness withHip flexion unable to flex hip against gravity intactSensation to light sensation 2 out of 4 pedal pulse Supplemental Info 11/01/2019X-ray right hip:Advanced right hip arthrosis with [id number] superiorly subchondral sclerosis and marginal osteophytes Assessment & Plan Problems 1. Primary osteoarthritis of right hip M16.11 Plan Educated patient has quite a bit of arthritis present and bursitis. Advised patient would benefit from surgical intervention. May still have stiffness even after surgery. Educated about the implant and MAKOplasty robotic arm for surgery. Discussed and educated on hip precautions for 3 months post op. Discussed risks of surgery: s/s of infection and blood clot. Recovery period 2-3 months you often feel better than before surgery and improve for up to a year. After surgery will wear compression stockings, taking a blood thinner, and avoiding NSAIDS. Can take Tylenol instead. Will also order therapy after surgery. Will take ATB's prophylactically for life before any dental work. Can swim again after three weeks after surgery. All questions answered. Patient in agreement of plan. 1. This patient has exhausted all conservative/nonoperative treatment measures to include physical therapy, epidural steroid injections and medications therefore we will recommend surgical intervention. 2. Over 30 minutes was spent in consultation with this patient. 4. The patient will obtain preoperative medical lab work, EKG and chest x-ray at a schedule pre-admission testing visit. 5. All questions were answered. The procedure was discussed in detail with the use of plastic models. Surgical consent was signed and reviewed. The patient verbalized understanding and agreed to comply with the treatment plan formulated. Risks, benefits and alternatives of surgery reviewed including but not limited to bleeding, infection, nerve, artery and/or tissue damage, fracture, VTE, leg length discrepancy, dislocation, need for hip precautions, continued pain and expected post-operative course. Coding Level of Care Code Off vis,est,level 3 Diagnoses Primary osteoarthritis of right hip M16.11 ??Osteoarthritis type: primary I have re-examined the patient. There are no clinical changes since date of exam
[2020-06-24] MEDS: Cefazolin 2 GM in 0.9% Normal Saline 100 ML IV (07:37)
--- NOTE | 2020-06-24 10:31 | PCM.DC.ORTHO ---
Discharge Diet: No Restrictions Weight Bearing Status: Weight bearing as tolerated Call your doctor if you observe: Shortness of breath, Chest pain Additional Instructions: Begin daily showering warm water antibacterial soap postop day #3( 72hrs Post-operatively) and then daily. Leave the dressing on for 72 hours postoperatively then may remove prior to first shower and change dressing daily after this until no drainage for 2 consecutive days then may leave open to air. Follow hip precautions that were reviewed in hospital. Wear compression stockings, may remove at night. Start physical therapy as directed in hospital. Call Dr. Hernández's office with any concerns. Allergies/Adverse Reactions: Allergies codeine Allergy (Verified 06/10/20 09:10) Hives Medications to take at Discharge lisinopril 10 mg-hydrochlorothiazide 12.5 mg tablet 1 tab PO DAILY tab 05/28/20 omeprazole 40 mg capsule,delayed release 40 mg PO DAILY 05/28/20 Acetaminophen [Tylenol Extra Strength] 1,000 mg PO Q6H PRN #100 tab 06/24/20 Apixaban [Eliquis] 2.5 mg PO BID #42 tab 06/24/20 Cephalexin [Keflex] 1,000 mg PO Q8 #4 cap 06/24/20 Ondansetron HCl [Zofran] 4 mg PO Q6H PRN PRN 5 Days #20 tab 06/24/20 Oxycodone [Oxyir] 5 mg PO Q4H PRN PRN #60 tablet 06/24/20 The following prescriptions were given: Apixaban [Eliquis] 2.5 mg PO BID #42 tab Transmission Status: Pending to [facility] Cephalexin [Keflex] 1,000 mg PO Q8 #4 cap Transmission Status: Pending to [facility] Oxycodone [Oxyir] 5 mg PO Q4H PRN PRN #60 tablet PRN Reason: Pain Score 6-10/10 Transmission Status: [facility] Acetaminophen [Tylenol Extra Strength] 1,000 mg PO Q6H PRN #100 tab Transmission Status: Pending to [facility] Ondansetron HCl [Zofran] 4 mg PO Q6H PRN PRN 5 Days #20 tab PRN Reason: Nausea Transmission Status: Pending to [facility] Primary Care Physician: Alicia Cobian MD [Primary Care Provider] - Test Results: Test results from this visit will be discussed in further detail at your follow-up appointment, if applicable. Please Follow Up With: Sidney Hernández DO - 2 weeks
--- NOTE | 2020-06-24 10:32 | OP.PCM_ITS ---
Report of Operation Date of Procedure: 06/24/20 Description of Surgical Findings:: Preoperative diagnosis: Right hip DJD Postoperative diagnosis: Same Procedure: CT-guided Makoplasty assisted right total hip arthroplasty Implants: [place] Accolade II stem size 6, 132 degree neck angle 0 neck length 56 mm Trident II acetabular shell with 20 mm cancellous screw 36 mm ceramic head Anesthesia: Spinal EBL: 175 cc Complications: None Condition: Stable to PACU Indication for procedure: This is a 49-year-old female who has had long-standing arthrosis of the hip who has failed conservative treatment and wished to undergo total hip arthroplasty. We did discuss operative versus nonoperative intervention including risks of bleeding, infection , nerve artery tissue damage, need for further surgery, fracture, leg length discrepancy dislocation blood clot and need for postoperative physical therapy and postoperative expectations. An informed consent was signed. Procedure: Patient was met in the preoperative holding area once again the operative extremity was identified by both patient and physician and was marked. Patient was met by anesthesia spinal anesthesia was started. patient was then positioned in the lateral decubitus position on a well-padded pegboard with an axillary roll. All bony prominences were checked and padded. The patient was prepped and draped in the usual sterile fashion. A timeout was called to ensure the proper patient procedure and extremity were being contemplated. Anatomic landmarks were palpated and marked for a standard posterior lateral approach. Prior to this the ASIS was palpated and 3 fingerbreadths proximal to this 3 pins were placed at a 45 degree angle into the iliac crest with good purchase, stab incisions were made with a 15 blade into the skin prior to placement. The Makoplasty array was then secured. A 10 blade scalpel was used to make a posterior incision through the skin and subcutaneous tissue. retractors were used and electrocautery was used to maintain meticulous hemostasis and dissect full-thickness flaps until the gluteal fascia was reached. The gluteal fascia was incised in line with the gluteal fibers. The bursal tissue was then freed from the underside and a Charnley retractor was placed. The femoral trochanteric checkpoint was placed and leg length was assessed using the trochanteric checkpoint and an EKG lead that was placed on the knee prior to prepping the leg .the fat pad was then elevated off of the external rotators with electrocautery and the external rotators were dissected off of the greater trochanter including the piriformis and were tagged with #1 Ethibond for later repair. The joint capsule opened with posterior trapdoor technique. The hip was surgically dislocated. The measurement on the preoperative CT from the top of the lesser trochanter to the femoral neck cut was marked Hohmann was placed around the lesser trochanter. A neck cutting guide was used to ann the neck with a Bovie and an oscillating saw was used complete the femoral neck cut. The femoral head was then removed and sized. We then turned our attention to the acetabulum. A Bovie was used to make a perforation in the anterior joint capsule and a Ordoñez retractor was placed this was repeated in the 6 o'clock position and a wide aliya was placed there. With a long handled knife the labral and pulvinar tissue were removed. We then registered the acetabulum with the pointing array and confirmed our landmarks. Once the socket was thoroughly prepared and labral tissue pulmonary was removed we single reamed with the robotic arm. We then used the robotic arm to position the acetabular implant and impacted it into place under robotic guidance. We then proceeded to place a posterior superior screw by drilling first measuring and inserting the screw. We then inserted a trial liner. And turned our attention back to the femur at this point a femoral elevator was used. As well as a pointed wide Hohmann around the lesser trochanter and a Hohmann to help retract the gluteus medius. A box chisel was used to remove excess lateral neck followed by a canal finder and a lateralizing reamer. This was followed by sequential broaches. Attention was made of the version within the canal based on preoperative templating. Once the final broach was seated we then trialed reduced the hip it was determined that a 132 degree neck angle with a 0 neck length was the appropriate size. We then checked stability with shuck testing as well as flexion and internal rotation. then proceeded with hip extension and checked leg lengths at the knees and heels as well as with the trochanteric checkpoint and knee EKG lead. At this point trials were removed. A liner was inserted to the cup. The femoral stem was inserted. We re-trialed and then proceeded to impact the femoral head onto the Vincent taper. We then surgically reduce the hip check stability again and leg lengths and were satisfied. Betadine rinse was allowed to sit for 5 minutes while everyone changed their gloves. Thorough irrigation was performed. Followed by closure of the external rotators with #2 FiberWire followed by closure of gluteal fascia with #1 Ethibond. 0 Vicryl fat stitches and 2-0 Vicryl subcutaneous stitches and jennifer in the skin. A pulls were placed in the pin sites over the iliac crest with Xeroform 4 x 4 and OpSite. dressing was applied to incisional area with Mepilex Ag and an abduction pillow was placed. Patient tolerated the procedure well there was no intraoperative complications all counts were correct and the patient was brought back to the PACU in stable condition
--- NOTE | 2020-06-24 11:10 | RAD_ITS ---
STUDY: X-RAY - PELVIS AND RIGHT HIP REASON FOR EXAM: Postop right hip arthroplasty. TECHNIQUE: 2 views of the pelvis and hip. COMPARISON: Radiographs 11/01/2019. FINDINGS: There is postoperative gas in the soft tissues. Normal visualized bilateral iliac wings, sacroiliac joints and visualized sacrum. Normal bilateral superior and inferior pubic rami. There are minor degenerative changes of the pubic symphysis. Normal bilateral ischial tuberosities. There is a right hip arthroplasty without evidence of complication. RAD/Hip Min 2 Views (Portable) IMPRESSION: Uncomplicated right hip arthroplasty. Electronically Signed: Anksuh Jacobson MD at 15:07 EDT Tel , Service support ,
[2020-06-24] MEDS: Ketorolac 30 MG/ML Syringe IV (11:59)
[2020-06-24] MEDS: dexAMETHasone 10 MG/ML Vial IV (12:03)
[2020-06-24] MEDS: Cefazolin 1 GM/50 ML BAG IV (13:45)
== END 2020-06-24 16:41 | disposition home or self-care (01) ==
LOC: SDC 05:21 → AC 05:21
PROVIDERS: Anesthesiology; PCP Family Medicine; Referring Provider Orthopaedic Surgery; Visit Provider Orthopaedic Surgery
PROC: 8E0Y0CZ Robotic Assisted Procedure of Lower Extremity, Open Approach (ICD-10-PCS; CPT 27130; principal; 2020-06-24 07:00)
DX: M16.11 Unilateral primary osteoarthritis, right hip (principal); Z11.59 Encounter for screening for other viral diseases; I10 Essential (primary) hypertension; K21.9 Gastro-esophageal reflux disease without esophagitis; G25.81 Restless legs syndrome; Z79.899 Other long term (current) drug therapy; Z87.891 Personal history of nicotine dependence
CPT/HCPCS: 01214; 27130; 36415; 73502; 80048; 81025; 82962; 83735; 85025; 85610; 85730; 86850; 86900; 86901; 87077; 87081; 87635; 93005; 97162; 97166; C1713; C1776; C9803; J7120; J2405; U0003

== ENCOUNTER 2020-08-07 07:00 | Outpatient (RCR) | payer OTHER, SELFPAY ==
[2020-05-28 08:16] VITALS: BMI 35.9
[2020-06-24 06:00] VITALS: BMI 34.8
--- NOTE | 2020-06-26 15:45 | HP.PTEVAL_ITS ---
Patient's Visit Information JANNETTE VIEIRA is a 49 year old F referred to Physical Therapy by Dr. Sidney Hernández DO with a diagnosis of R MAKAYLA sajan. Date of Evaluation: 06/26/20 Physical Therapist: Franki Presley DPT - Visit Plan Frequency: 2x /Week Duration: 4 Weeks Plan: Plan to inc R hip ROM, inc RLE strength, inc ability to safely ambulate while normalizing gait pattern, inc balance, and facilitate dec in R hip pain. - Subjective Pt presents this date for eval 2 days s/p R MAKAYLA postero-lateral approach. Received personal training and pool prehab starting in January and continued until the day before surgery. Pt utilizes FWW for ambulation. States that her R hip pain inc when she has been sitting for too long, when she is standing up, and when she has been walking for too long. She feels like she is able to move and get around better now than prior to surgery, just mostly feels weak in her RLE. Pt has future plans to have a L MAKAYLA as well but has yet to figure out an exact time frame. Has taken pain pills PRN over the last couple days for pain but states she mostly uses medical marijuana edibles PRN for pain and believes they help more. - Pain L hip Pain Intensity (Out of 10): 1 Pain Intensity Range: 1, 6 - Objective POSTURE: Dec WB on RLE. PALPATION: Pt reports feeling tender over incision. WNL otherwise. ROM: Dec R hip ROM in all planes. WNL elsewhere. MMT: Dec RLE strength, not formally assessed d/t pt apprehension. NEURO: WNL. GAIT: Ambulates utilizing FWW. Dec christian, dec RLE WB, dec LLE step length, forward trunk. Step-to pattern. Min A w/ bed mobility to help manage RLE going from sitting on EOB into supine. - Goals Goal 1:: LTG: Pt to be I w/ HEP. Goal Time Frame: 4-6 Weeks Goal 2:: STG: Pt will display inc RLE strength within 1/2 grade of LLE. Goal Time Frame: 2-4 Weeks Goal 3:: LTG: Pt will display inc RLE strength equal or greater than LLE. Goal Time Frame: 4-6 Weeks Goal 4:: LTG: Pt will be able to safely ambulate at least 100 feet w/out use of AD. Goal Time Frame: 4-6 Weeks Goal 5:: LTG: Pt will report having 0/10 pain in R hip. Goal Time Frame: 4-6 Weeks - Rehabilitation Potential Physical Therapy Diagnosis: S/s consistent w/ R MAKAYLA. Pt displays dec R hip ROM, dec RLE strength, dec ability to safely ambulate, and inc R hip pain. PT intervention indicated to address stated deficits and improve R hip ROM, inc RLE strength, inc ability to safely ambulate w/out FWW, and facilitate a dec in R hip pain. Rehabilitation Potential: Good - Anticipated Interventions Patient/Client Instruction: Educate patient on: Condition, Plan of Care, Risk Factors, Benefits of Fitness Program For the Purpose of:: To improve safety, To foster healthy habits, To improve decision making, To prevent re-injury Therapeutic Exercise to Include: Strength training, Endurance training, Balance training, Flexibilty training, Gait and locomotor training, Passive ROM, Active ROM For the Purpose of:: To decrease pain, To increase ROM, To improve muscle performance and motor function, To increase tolerance to activity/condition/position, To improve gait and locomotor functions, To increase flexibility/ROM, To improve endurance, To improve balance, To improve safety with gait Thank you for the opportunity to evaluate your patient. For Medicare and Medicare HMO plans, please review the plan of care and approve it. It will need to be FAXED BACK to us at [phone] for Medicare purposes. For Medicare only, by signing this I certify the plan of care. Please let me know if there are questions or concerns regarding this plan of care. Physician Signature: Date:
--- NOTE | 2020-08-07 07:46 | HP.PTDCSUM_ITS ---
It has been my pleasure to treat JANNETTE VIEIRA referred by Dr. Sidney Hernández DO, with the diagnosis of R MAKAYLA sajan for a total of 10 visit(s). Discharge Date: 08/07/20 Please see the following information for a summary of their discharge status. Subjective: Pt. reports I am doin gmuch better. Pt. reports no pain currently. She is HEP compliant. She has started pool exercies and land exercises alternating. L hip Pain Intensity (Out of 10): 6 R hip Pain Intensity (Out of 10): 0 % Improvement: 90 Objective/Function: TU.1sec. ROM: R hip- flexion 100deg, ext 10deg. MMT: RLE: knee ext 48.1lbs, flexion 45.2lbs; hip- flexion 18lbs, ext 32lbs. GAIT: Pt. ambulates without AD with marked lateral deviation, but reports no pain. She has less R hip ER, but marked L hip ER and L hip pain reported. STAIRS: PT. is able to complete with reciprocal pattern, but does have increased pain on L side with ascending/descending. Use of BHR. WOMAC: 79. Pt. is scheduled to have her L hip replaced in September. Goal 1:: LTG: Pt to be I w/ HEP. Goal Progress: Goal Met Goal 2:: STG: Pt will display inc RLE strength within 1/2 grade of LLE. Goal Progress: Goal Met Goal 3:: LTG: Pt will display inc RLE strength equal or greater than LLE. Goal Progress: Goal Met Goal 4:: LTG: Pt will be able to safely ambulate at least 100 feet w/out use of AD. Goal Progress: Goal Met Goal 5:: LTG: Pt will report having 0/10 pain in R hip. Goal Progress: Goal Met Plan: DC to HEP both in gym and aquatics. Pt. to continue to work on hip abd/flexion strengthening and progress gait tolerance. I talked with personal lines account executive her at gym and she will implement these activities into her program. Discharge Comments: Pt. will be DC from PT at this point in time. She is overall doing well. Pt. reportsbeing 90% better overall in her R hip,but he left hip is bothering her. She is scheduled to have a L MAKAYLA in September of 2020. Pt. is set up with an HEP for both land and aquatics with focus on functional strengtheing and ROM of R hip. I talked with her personal lines account executive to also target these areas as well. If there are questions or concerns regarding this patient's physical therapy, please feel free to call me at [phone]. Thank you for the referral of this patient. Sincerely, JUVE VaughanT
== END 2020-08-07 19:00 | disposition home or self-care (01) ==
LOC: PT 07:00
PROVIDERS: PCP Family Medicine; Referring Provider Orthopaedic Surgery; Visit Provider Orthopaedic Surgery
DX: Z47.1 Aftercare following joint replacement surgery (principal)
CPT/HCPCS: 97110; 97161

== ENCOUNTER → 2020-09-18 06:55 | Outpatient (CLI) | payer OTHER, SELFPAY ==
--- NOTE | 2020-09-18 07:07 | CT_ITS ---
STUDY: CT LEFT HIP WITHOUT CONTRAST REASON FOR EXAM: Female, 49 years old. Left hip pain. RADIATION DOSAGE (If Supplied By Facility): CTDIvol = ( 12.86 ) mGy, DLP = ( 906.72 ) mGycm TECHNIQUE: Thin section transaxial imaging of the hip was obtained, with sagittal and coronal reconstructed images. Individualized dose optimization techniques were used for this CT. COMPARISON: 06/24/2020 FINDINGS: There is severe degenerative arthrosis in the left hip joint. There is subchondral fracture of the upper part of the femoral head. There is right hip arthroplasty in good alignment. There is no abnormality in the adjacent soft tissues. There is no evidence of fracture. Normal visualized superior and inferior pubic rami and ischial tuberosities. Severe degenerative in the right medial femorotibial joint and mild changes in the patellofemoral joint are noted. Moderate degenerative in the left medial and lateral femorotibial joints and severe changes in the left patellofemoral joint are noted. CT/Extremity Lower without Contra IMPRESSION: Severe degenerative arthrosis of the left hip. Subchondral fracture of the upper part of the femoral head. 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 Electronically Signed: Jesse Zambrano, at 10:29 EST Tel , Service support ,
== END ==
PROVIDERS: PCP Family Medicine; Referring Provider Orthopaedic Surgery; Visit Provider Orthopaedic Surgery
DX: M16.12 Unilateral primary osteoarthritis, left hip (principal)
CPT/HCPCS: 73700

== ENCOUNTER 2020-10-07 08:39 | Day surgery (SDC) | payer OTHER, SELFPAY ==
[2020-07-07 16:01] VITALS: BMI 35.9
--- NOTE | 2020-09-26 08:43 | EKG12_ITS ---
Test Reason : PREOP Blood Pressure : / mmHG Vent. Rate : 077 BPM Atrial Rate : 077 BPM P-R Int : 132 ms QRS Dur : 078 ms QT Int : 388 ms P-R-T Axes : 040 024 060 degrees QTc Int : 439 ms Normal sinus rhythm Normal ECG Confirmed by ADAIR RUSSELL, SONIA ([id number]), brands editor THOMAS OSEI ([id number]) on 09/29/2020 9:46:15 AM Referred By: Sidney Hernández Confirmed By:SONIA BORRERO MD
[2020-09-26 09:59] LABS: Absolute Lymphocyte Count 2.61 X10^3/uL (0.83-4.51); Absolute Neutrophil Count 2.7 X10^3/uL (2.0-7.7); Basophil# 0.05 X10^3/uL; Basophil% 0.8 % (0-1); Eosinophil# 0.34 X10^3/uL; Eosinophils% 5.5 % (0-5); Hematocrit 36.6 % (37-47); Hemoglobin 11.3 g/dL (12.0-15.0); Lymphocyte # 2.61 X10^3/ul (4.0); Lymphocyte % 42.4 % (19-41); Mean Corp Hgb Conc 30.9 g/dL (32-36); Mean Corpuscular Hgb 25.1 pg (27.0-32.0); Mean Corpuscular Volume 81.2 fL (81-99); Mean Platelet Vol. 12.6 fl (6.2-12.0); Monocyte# 0.47 X10^3/uL; Monocyte% 7.6 % (0-10); NRBC Flagged by Analyzer 0 % (0-5); Neutrophil # 2.67 X10^3/uL (2.7-7.7); Neutrophil % 43.5 % (47-70); Platelet Count 312 K/mm3 (150-450); RBC Distribution Width CV 15.5 % (11.6-14.6); RBC Distribution Width SD 45.1 fl (35.1-43.9); Red Blood Count 4.51 M/mm3 (4.2-5.4); White Blood Count 6.2 K/mm3 (4.4-11.0)
[2020-09-26 10:06] LABS: Prothrombin Time (Protime)PT. 12.4 SECONDS (11.7-14.9)
[2020-09-26 10:07] LABS: Partial Thromboplast Time 26.8 Seconds (24.1-36.2)
[2020-09-26 10:30] LABS: Anion Gap 5 (5-15); BUN 16 mg/dL (7-18); BUN/Creat Ratio 21.9 RATIO (10-20); Chloride 104 mmol/L (98-107); Creatinine, Serum 0.73 mg/dL (0.55-1.02); EST Glomerular Filtration Rate 91 mL/min (>60); Est Glom Filt Rate - Afr Amer 110 mL/min (>60); Glucose 79 mg/dL (74-106); Potassium 3.9 mmol/L (3.5-5.1); Sodium Level 138 mmol/L (136-145)
[2020-09-26 10:34] LABS: Magnesium 2.1 mg/dL (1.6-2.6)
[2020-10-07] VITALS (11 sets, daily range): BP systolic 87–141; BP diastolic 57–102; PULSE 49–80; RESP 14–18; TEMP 36.3–37.2; O2SAT 98–100; BMI 34.0
--- NOTE | 2020-10-07 07:15 | PCM.HP.BLA ---
History and Physical Date of Admission: 10/07/20 Intake Intake Visit Reasons: left hip Accompanied by: Self Is patient in pain?: Yes Pain scale (1-10): 8 Allergies codeine Allergy (Verified 09/08/20 08:13) Hives Medications lisinopril 10 mg-hydrochlorothiazide 12.5 mg tablet 1 tab PO DAILY tab 05/28/20 [History Confirmed 09/08/20] omeprazole 40 mg capsule,delayed release 40 mg PO DAILY 05/28/20 [History Confirmed 09/08/20] hydrocodone 5 mg-acetaminophen 325 mg tablet 1 tab PO DAILY PRN tab 09/08/20 [History Confirmed 09/08/20] PFSH Medical History (Updated 09/08/20 @ 08:25 by Chantale Sterling) Hypertension (Chronic) Surgical History (Updated 10/06/17 @ 09:44 by Alicia Nicolas) History of appendectomy (Inactive) Family History (Updated 10/06/17 @ 09:45 by Alicia Nicolas) Mother Cancer Heart disease CVA (cerebral vascular accident) Diabetes Hypertension Social History (Updated 09/08/20 @ 08:[address] Sidney Hernández DO) Smoking Status: Former smoker quit date: 09/19/00 alcohol intake: current HPI left hip: Details: Parts of this documentation were recorded by a scribe, this documentation accurately reflects the service provided and the decisions made by me, Dr. Sidney Hernández DO 09/08/20 0748. JANNETTE VIEIRA is a 49 year old F here today to sign surgery consent. Patient would like to schedule surgery for a left MAKAYLA. Patient takes Vicodin qhs to help her sleep at night d/t pain. Patient has been going to water therapy, once weekly which helps her pain and helps ambulation. ROS Musc Reports system reviewed and no additional complaints, except as docu, Reports abnormal walking, Reports joint pain, Denies numbness, Denies stiffness, Denies tingling Neuro Yes system reviewed and no additional complaints, except as docu, Yes abnormal walking, No numbness, No tingling Ortho Exam General General: Yes no acute distress Neurologic: Yes alert Psychologic: Yes reasonable and appropriate Left Hip Homans Sign: No HIP: 55 external rotation with pain 0 internal rotation with pain swelling to the tibial tubercle tattoo over the left lateral hip No concerning skin lesions in the area of planned incision, However Counseled incision may violate her tattoo Supplemental Info 08/04/2020 x-ray left hip:Advanced left hip arthrosis 08/04/2020: X-ray right hip status post total hip arthroplasty with good interfaces and positioning. 11/01/2019X-ray right hip:Advanced right hip arthrosis with [id number] superiorly subchondral sclerosis and marginal osteophytes Assessment & Plan Problems 1. Osteoarthritis of left hip, unspecified osteoarthritis type M16.[address] for sajan Risks, benefits and alternatives of surgery reviewed including but not limited to bleeding, infection, nerve, artery and/or tissue damage, fracture, VTE, leg length discrepancy, dislocation, need for hip precautions, continued pain and expected post-operative course. Coding Level of Care Code Off vis,est,level 3 Diagnoses Osteoarthritis of left hip, unspecified osteoarthritis type M16.12 ??Osteoarthritis type: unspecified I have re-examined the patient. There are no clinical changes since date of exam
[2020-10-07 09:16] LABS: Internal QC Validated? YES +Cl - CLEAR BKGD
[2020-10-07 09:19] LABS: Pregnancy, Urine Negative Negative
[2020-10-07] MEDS: Acetaminophen 500 MG Tablet 1000 MG PO ×2 (09:38→16:47)
[2020-10-07] MEDS: Gabapentin 600 MG Tablet PO (09:38)
[2020-10-07] MEDS: Scopolamine 1mg/72hr Patch 1 PATCH TD (09:38)
[2020-10-07] MEDS: Celecoxib 200 MG Capsule 400 MG PO (09:38)
[2020-10-07 10:21] LABS: Bedside Glucose 78 mg/dL (70-110)
[2020-10-07] MEDS: Cefazolin 2 GM in 0.9% Normal Saline 100 ML IV (10:30)
[2020-10-07] MEDS: dexAMETHasone 10 MG/ML Vial IV (11:11)
--- NOTE | 2020-10-07 12:55 | RAD_ITS ---
STUDY: X-RAY - PELVIS AND LEFT HIP REASON FOR EXAM: Postop left hip arthroplasty. TECHNIQUE: 2 views of the pelvis and hip. COMPARISON: Preoperative CT images of the left hip 09/18/2020. FINDINGS: There is postoperative gas in the soft tissues and overlying skin jennifer. Normal bilateral superior and inferior pubic rami. Normal pubic symphysis. Normal bilateral ischial tuberosities. There is a left hip arthroplasty without evidence of complication. RAD/Hip Min 2 Views (Portable) IMPRESSION: Uncomplicated left hip arthroplasty. Electronically Signed: Ankush Jacobson MD at 14:37 EST Tel , Service support ,
--- NOTE | 2020-10-07 13:00 | DCINST_ITS ---
Discharge Diet: No Restrictions, - - high sugar diet increases risk of infection. Weight Bearing Status: Weight bearing as tolerated Keep extremity elevated above heart level: Operative Extremity Call your doctor if you observe: Fever of 101 or Higher, Shortness of breath, Chest pain Additional Instructions: Do not shower 72hrs. Begin daily showering warm water antibacterial soap postop day #3( 72hrs Post-operatively) and then daily. Leave the dressing on for 72 hours postoperatively then may remove prior to first shower and change dressing daily after this until no drainage for 2 consecutive days then may leave open to air. Follow hip precautions that were reviewed in hospital. Wear compression stockings, may remove at night. Start physical therapy as directed in hospital. Follow prescriptions instructions do not take any other pain medication or differ dosing without consulting your physician. Do not take oral NSAIDs until blood thinner has been completed , then may begin the day after completion if needed . Call Dr. Hernández's office with any concerns. Allergies/Adverse Reactions: Allergies codeine Allergy (Verified 09/23/20 15:01) Hives Medications to take at Discharge lisinopril 10 mg-hydrochlorothiazide 12.5 mg tablet 1 tab PO DAILY tab 05/28/20 omeprazole 40 mg capsule,delayed release 40 mg PO DAILY 05/28/20 hydrocodone 5 mg-acetaminophen 325 mg tablet 1 tab PO DAILY PRN tab 09/08/20 Minatare-3 Fatty Acids/Fish Oil [Minatare 3 1,000 mg Softgel] 1 ea PO DAILY 09/23/20 Turmeric 400 mg PO DAILY 09/23/20 Vitamin B Complex 1 ea PO DAILY 09/23/20 Acetaminophen [Tylenol Extra Strength] 1,000 mg PO Q6H PRN #100 tab 10/07/20 Apixaban [Eliquis] 2.5 mg PO BID #42 tab 10/07/20 Cephalexin [Keflex] 1,000 mg PO Q8 #4 cap 10/07/20 Ondansetron HCl [Zofran] 4 mg PO Q6H PRN PRN 5 Days #20 tab 10/07/20 Oxycodone [Oxyir] 5 mg PO Q4H PRN PRN #60 tablet 10/07/20 The following prescriptions were given: Apixaban [Eliquis] 2.5 mg PO BID #42 tab Transmission Status: Pending to [facility] Cephalexin [Keflex] 1,000 mg PO Q8 #4 cap Transmission Status: Pending to [facility] Oxycodone [Oxyir] 5 mg PO Q4H PRN PRN #60 tablet PRN Reason: Pain Score 6-10 Transmission Status: Sent to [facility] Acetaminophen [Tylenol Extra Strength] 1,000 mg PO Q6H PRN #100 tab Transmission Status: Pending to [facility] Ondansetron HCl [Zofran] 4 mg PO Q6H PRN PRN 5 Days #20 tab PRN Reason: Nausea Transmission Status: Pending to [facility] Primary Care Physician: Alicia Cobian MD [Primary Care Provider] - Test Results: Test results from this visit will be discussed in further detail at your follow- up appointment, if applicable. Please Follow Up With: Sidney Hernández DO - 2 weeks
--- NOTE | 2020-10-07 13:01 | PCM.OPRPT ---
Report of Operation Date of Procedure: 10/07/20 Description of Surgical Findings:: Preoperative diagnosis: Left hip DJD Postoperative diagnosis: Same Procedure: CT-guided Makoplasty assisted left total hip arthroplasty Implants: Catherine Accolade II stem size 6, 132 degree neck angle +7.5 neck length 54 mm Trident II acetabular shell with 25 mm cancellous screw 36 mm ceramic head Anesthesia: Spinal EBL: 175 cc Complications: None Condition: Stable to PACU Indication for procedure: This is a 49-year-old female who has had long-standing arthrosis of the hip who has failed conservative treatment and wished to undergo total hip arthroplasty. We did discuss operative versus nonoperative intervention including risks of bleeding, infection , nerve artery tissue damage, need for further surgery, fracture, leg length discrepancy dislocation blood clot and need for postoperative physical therapy and postoperative expectations. An informed consent was signed. Procedure: Patient was met in the preoperative holding area once again the operative extremity was identified by both patient and physician and was marked. Patient was met by anesthesia . Anesthesia was started. patient was then positioned in the lateral decubitus position on a well-padded pegboard with an axillary roll. All bony prominences were checked and padded. The patient was prepped and draped in the usual sterile fashion. A timeout was called to ensure the proper patient procedure and extremity were being contemplated. Anatomic landmarks were palpated and marked for a standard posterior lateral approach. Prior to this the ASIS was palpated and 3 fingerbreadths proximal to this 3 pins were placed at a 45 degree angle into the iliac crest with good purchase, stab incisions were made with a 15 blade into the skin prior to placement. The Makoplasty array was then secured. A 10 blade scalpel was used to make a posterior incision through the skin and subcutaneous tissue. retractors were used and electrocautery was used to maintain meticulous hemostasis and dissect full-thickness flaps until the gluteal fascia was reached. The gluteal fascia was incised in line with the gluteal fibers. The bursal tissue was then freed from the underside and a Charnley retractor was placed. The femoral trochanteric checkpoint was placed and leg length was assessed using the trochanteric checkpoint and an EKG lead that was placed on the knee prior to prepping the leg .the fat pad was then elevated off of the external rotators with electrocautery and the external rotators were dissected off of the greater trochanter including the piriformis and were tagged with #1 Ethibond for later repair. The joint capsule opened with posterior trapdoor technique. The hip was surgically dislocated. The measurement on the preoperative CT from the top of the lesser trochanter to the femoral neck cut was marked Hohmann was placed around the lesser trochanter. A neck cutting guide was used to ann the neck with a Bovie and an oscillating saw was used complete the femoral neck cut. The femoral head was then removed and sized. We then turned our attention to the acetabulum. A Bovie was used to make a perforation in the anterior joint capsule and a Ordoñez retractor was placed this was repeated in the 6 o'clock position and a wide aliya was placed there. With a long handled knife the labral and pulvinar tissue were removed. We then registered the acetabulum with the pointing array and confirmed our landmarks. Once the socket was thoroughly prepared and labral tissue pulmonary was removed we single reamed with the robotic arm. We then used the robotic arm to position the acetabular implant and impacted it into place under robotic guidance. We then proceeded to place a posterior superior screw by drilling first measuring and inserting the screw. We then inserted a trial liner. And turned our attention back to the femur at this point a femoral elevator was used. As well as a pointed wide Hohmann around the lesser trochanter and a Hohmann to help retract the gluteus medius. A box chisel was used to remove excess lateral neck followed by a canal finder and a lateralizing reamer. This was followed by sequential broaches. Attention was made of the version within the canal based on preoperative templating. Once the final broach was seated we then trialed reduced the hip it was determined that a 132 degree neck angle with a +7.5 neck length was the appropriate size. We then checked stability with shuck testing as well as flexion and internal rotation. then proceeded with hip extension and checked leg lengths at the knees and heels as well as with the trochanteric checkpoint and knee EKG lead. At this point trials were removed. A liner was inserted to the cup. The femoral stem was inserted. We re-trialed and then proceeded to impact the femoral head onto the Vincent taper. We then surgically reduce the hip check stability again and leg lengths and were satisfied. Betadine rinse was allowed to sit for 5 minutes while everyone changed their gloves. Thorough irrigation was performed. Followed by closure of the external rotators with #2 FiberWire followed by closure of gluteal fascia with #1 Ethibond. 0 Vicryl fat stitches and 2-0 Vicryl subcutaneous stitches and jennifer in the skin. A pulls were placed in the pin sites over the iliac crest with Xeroform 4 x 4 and OpSite. dressing was applied to incisional area with Mepilex Ag and an abduction pillow was placed. Patient tolerated the procedure well there was no intraoperative complications all counts were correct and the patient was brought back to the PACU in stable condition
[2020-10-07] MEDS: Lactated Ringers 1,000 ML 999 ML IV (13:50)
[2020-10-07] MEDS: Lactated Ringers 1,000 ML 125 ML IV (13:52)
[2020-10-07] MEDS: Lactated Ringers 1,000 ML 100 ML IV (14:31)
[2020-10-07] MEDS: Cefazolin 1 GM/50 ML BAG IV (15:31)
== END 2020-10-07 17:56 | disposition home or self-care (01) ==
LOC: SDC 08:43 → AC 08:43
PROVIDERS: Anesthesiology; PCP Family Medicine; Referring Provider Orthopaedic Surgery; Visit Provider Orthopaedic Surgery
PROC: 8E0Y0CZ Robotic Assisted Procedure of Lower Extremity, Open Approach (ICD-10-PCS; CPT 27130; principal; 2020-10-07 09:45)
DX: M16.12 Unilateral primary osteoarthritis, left hip (principal); Z20.828 Contact with and (suspected) exposure to other viral communicable diseases; I10 Essential (primary) hypertension; K21.9 Gastro-esophageal reflux disease without esophagitis; G25.81 Restless legs syndrome; Z87.19 Personal history of other diseases of the digestive system; Z79.899 Other long term (current) drug therapy; Z87.891 Personal history of nicotine dependence
CPT/HCPCS: 01214; 27130; 36415; 73502; 80048; 81025; 82962; 83735; 85025; 85610; 85730; 86850; 86900; 86901; 87077; 87081; 87426; 93005; 97161; C1776; C9803; J7120; J2405

== ENCOUNTER → 2020-11-10 11:19 | Outpatient (CLI) | payer OTHER, SELFPAY ==
[2020-11-13 20:07] LABS: QNTFERON TB Mitogen Value > 10.00 IU/mL (.); QNTFERON TB Nil Value 0.06 IU/mL (.); QNTFERON TB1+ Ag Value 0.07 IU/mL (.); QNTFERON TB2+ Ag Value 0.05 IU/mL (.)
[2020-11-13 20:23] LABS: QNTIFERON TB Positive Criteria Negative (Negative)
== END ==
PROVIDERS: PCP Family Medicine; Referring Provider Physician Assistant; Visit Provider Physician Assistant
DX: L40.0 Psoriasis vulgaris (principal); Z79.899 Other long term (current) drug therapy
CPT/HCPCS: 36415; 86480

== ENCOUNTER 2020-12-22 08:00 | Outpatient (RCR) | payer OTHER, SELFPAY ==
[2020-10-07 09:39] VITALS: BMI 34.0
--- NOTE | 2020-10-15 16:24 | HP.PTEVAL ---
Patient's Visit Information JANNETTE VIEIRA is a 49 year old F referred to Physical Therapy by Dr. Sidney Hernández DO with a diagnosis of L MAKAYLA. Date of Evaluation: 10/15/20 Physical Therapist: Franki Presley DPT - Visit Plan Frequency: 3x /Week Duration: 4-6 Weeks Plan: Start with ROM, strengthening, progression of gait. Progress functional strengthening as tolerated. - Subjective Pt. is here today for her initial evaluation with diagnosis of L TKA. DOS 10/07/20. Pt. reports her biggest issue has been with her cervical spine which is doing better now after seeing chiropractor. Pt. reports some L gluteal pain, but has improved. She denies N/T, no calf pain. Pt. reports sleeping okay, but has reposition frequently. Pt. has been complaint with exercises at home and is now walking without AD. Pt. did have a posterior lateral approach with her surgery. Pt. is hopeful to get back to all recreational and walking without limitations. - Pain L hip Pain Intensity (Out of 10): 6 Pain Intensity Range: 2, 7 - Objective POSTURE: Pt. has good posture in stance. SHe still tends to intravenous therapy nurse hip ER positioning, but has improved since I saw her last. Pt. stands without Ad with good balance. PALPATION: Pt. has normal healing incision no sigsn of infection. Pt. has tenderness at gluteal region and throughout her thigh. NEURO: Normal throughout. Normal sensation and normal achilles and patellar DTR. ROM: L hip- flexion 90deg, abd 30deg, ext 5deg. Did not test rotation this date. HS length to 60deg tightness noted. MMT: RLE 5-/5 throughout. LLE- ankle 5/5 throughout; knee- ext 4/5, flexion 4/5; hip- flexion 3-/5, abd 3-/5, ext 3-/5. GAIT: Pt. si ambulating without AD. Pt. has incrased hip ER postioning with gait, but is improved since previous gait assessment. Pt. reports minimal pain with gait this date. STAIRS: Pt. is able to negotiate with reciprocal pattern with use of 2 HR. Mild increase in soreness noted. TU sec, Womac 58/96. - Goals Goal 1:: LTG: PT. to be I with HEP. Goal Time Frame: 4-6 Weeks Goal 2:: STG: Pt. to sleep throughout the night without increase in symptoms. Goal Time Frame: 4-6 Weeks Goal 3:: STG: Pt. to have normal gait pattern without increase in symptoms without AD. Goal Time Frame: 2-4 Weeks Goal 4:: LTG: Pt. to negotiate steps with1 HR with reciprocal pattern without increase in symptoms. Goal Time Frame: 4-6 Weeks Goal 5:: LTG: pt. to have increased LLE strength to atleast 4+/5 throughout. Goal Time Frame: 4-6 Weeks - Rehabilitation Potential Physical Therapy Diagnosis: Pt. has signs and symptoms consistent with L MAKAYLA. Pt. is doing very well. She has good ROM and her tolerance to walking and functional mobility is good. Pt. does have marked LLE weakness, but is expected. No adverse signs post surgical. Pt. would benefit from PT to work on functional mobility, weakness and gait progression. Rehabilitation Potential: Excellent - Anticipated Interventions Patient/Client Instruction: Educate patient on: Condition, Plan of Care, Risk Factors, Benefits of Fitness Program For the Purpose of:: To improve self management, To prevent re-injury, To improve ability to perform tasks related to life management, To improve tolerance to ADL's Therapeutic Exercise to Include: Strength training, Power training, Endurance training, Balance training, Postural training, Flexibilty training, Gait and locomotor training, Active ROM For the Purpose of:: To decrease pain, To decrease swelling/inflammation, To increase ROM, To improve nutrient delivery to tissue, To increase oxygenation perfusion, To improve muscle performance and motor function, To improve ability to perform ADL's, To increase tolerance to activity/condition/position, To improve performance and independence with ADL's, To improve gait and locomotor functions, To improve health of tissue, To decrease soft tissue restriction, To increase flexibility/ROM Cryotherapy (ice pack, ice massage): Yes Thermo therapy (hot pack): Yes For the Purpose of:: To decrease pain, To decrease swelling/inflammation, To increase ROM Thank you for the opportunity to evaluate your patient. For Medicare and Medicare HMO plans, please review the plan of care and approve it. It will need to be FAXED BACK to us at [phone] for Medicare purposes. For Medicare only, by signing this I certify the plan of care. Please let me know if there are questions or concerns regarding this plan of care. Physician Signature: Date:
--- NOTE | 2020-12-22 08:22 | HP.PTDCSUM ---
It has been my pleasure to treat JANNETTE VIEIRA referred by Dr. Sidney Hernández DO, with the diagnosis of L MAKAYLA for a total of 9 visit(s). Discharge Date: 12/22/20 Please see the following information for a summary of their discharge status. Subjective: Pt. reports no pain today. Pt. reports beign 98% better overall. I get occassional soreness, but other than that I am doing well. She has started some aquatic exercises and is on a walking routine. Overall she reports she is doing well. L hip Pain Intensity (Out of 10): 0 Back Pain Intensity (Out of 10): 0 % Improvement: 98 Objective/Function: L hip ROM: flexion 110deg, abd 45deg, ext 15deg. IR 20deg, ER 45deg. Pt. reports no pain with all ROM testing. MMT: 5/5 throughout, except hip flexion 4+/5 and abd 4+/5. TUG 6.60 sec no AD. STAIRS: Pt. is able to negotiate with 1 HR with reciprocal pattern no pain with good posture. Pt. reports no issues with HEP both for home and gym exercises. Goal 1:: LTG: PT. to be I with HEP. Goal Progress: Goal Met Goal 2:: STG: Pt. to sleep throughout the night without increase in symptoms. Goal Progress: Goal Met Goal 3:: STG: Pt. to have normal gait pattern without increase in symptoms without AD. Goal Progress: Goal Met Goal 4:: LTG: Pt. to negotiate steps with1 HR with reciprocal pattern without increase in symptoms. Goal Progress: Goal Met Goal 5:: LTG: pt. to have increased LLE strength to atleast 4+/5 throughout. Goal Progress: Goal Met Plan: DC to HEP and walking program as tolerated. Discharge Comments: Lisha progressed well with her PT program. Initially working on ROM and progressing with walking and strengthening. She is doing great and is to continue with walking program and independent exercises. She will be DC from PT at this point in time. If there are questions or concerns regarding this patient's physical therapy, please feel free to call me at [phone]. Thank you for the referral of this patient. Sincerely, Franki Presley DPT
== END 2020-12-22 10:37 | disposition home or self-care (01) ==
LOC: PT 08:00
PROVIDERS: PCP Family Medicine; Referring Provider Orthopaedic Surgery; Visit Provider Orthopaedic Surgery
DX: Z47.1 Aftercare following joint replacement surgery (principal); Z96.642 Presence of left artificial hip joint
CPT/HCPCS: 97110; 97161

== ENCOUNTER → 2021-02-03 10:19 | Outpatient (CLI) | payer OTHER, SELFPAY ==
[2021-02-03 12:58] LABS: Anion Gap 4 (5-15); BUN 11 mg/dL (7-18); BUN/Creat Ratio 14.9 RATIO (10-20); Calcium,Total 8.9 mg/dL (8.5-10.1); Chloride 108 mmol/L (98-107); Creatinine, Serum 0.74 mg/dL (0.55-1.02); EST Glomerular Filtration Rate 89 mL/min (>60); Est Glom Filt Rate - Afr Amer 108 mL/min (>60); Glucose 91 mg/dL (74-106); Potassium 3.7 mmol/L (3.5-5.1); Sodium Level 140 mmol/L (136-145)
== END ==
PROVIDERS: PCP Family Medicine; Referring Provider Family Medicine; Visit Provider Family Medicine
DX: I10 Essential (primary) hypertension (principal)
CPT/HCPCS: 36415; 80048

== ENCOUNTER 2021-06-01 08:45 | Outpatient (RCR) | payer MEDICAID, SELFPAY ==
--- NOTE | 2021-06-11 14:42 | HP.FCE ---
Floor (Occasional 1-33% of Day): 35# Floor (Frequent 34-66% of Day): 18# Floor (Constant 67-100% of Day): 7# Floor PDL: Light-Medium Knee (Occasional 1-33% of Day): 35# Knee (Frequent 34-66% of Day): 18# Knee (Constant 67-100% of Day): 7# Knee PDL: Light-Medium Waist (Occasional 1-33% of Day): 25# Waist (Frequent 34-66% of Day): 12# Waist (Constant 67-100% of Day): NA Waist PDL: Light Shoulder (Occasional 1-33% of Day): 15# Shoulder (Frequent 34-66% of Day): 8# Shoulder (Constant 67-100% of Day): NA Shoulder PDL: Sedentary-Light Overhead (Occasional 1-33% of Day): 5# Overhead (Frequent 34-66% of Day): NA Overhead (Constant 67-100% of Day): NA Overhead PDL: Sedentary Bending: Occasional Ability (1-33% of day) Squatting: Occasional Ability (1-33% of day) Comments: with external support Kneeling: Occasional Ability (1-33% of day) Comments: low Reaching out: Frequent Ability (34-66% of day) Reaching up: Frequent Ability (34-66% of day) Sitting: Frequent Ability (34-66% of day) Walking: Occasional Ability (1-33% of day) Standing: Occasional Ability (1-33% of day) Duration Sedentary Sedentary Light Light Light Medium Medium Medium Heavy Very Heavy Heavy Occasional (0-33% of day) Frequent (34-66% of day) Constant (67-100% of day) 10 # Negligible Negligible 15 # 8 # Negligible 20 # 10# Negli. 35 # 18 # 7 # 50 # 25 # 10 # 75 # 100 # >100 # 38 # 50 # >50 # 15 # 20 # >20 # Weight:: 102.058 kg Hand Dominance: right Medical History Including Restrictions: This pt states she was in good health until 8 years ago. Pt states she gets psoriisis outbreak by a dermatologists but has not been able to mtg. well. Pt states she see dr. rea for low back and neck pain mtg. pt states she has had two MRI on her neck awhile about 3-4 years ago . pt states she had bilateral THR by dr. Castillo 2019 and 2020- pt states she recovered well from her hip surgery. pt did undergo therapy following both hip replacements. Pt states she sees a chiropractor for thoracic and lumbar and neck. pt states she sees him once a month. pt states she does exercise on a regular basis. Diagnoses: Bilateral hip OA. Hip pain. Lumbosacral. nausea. diareha. Ulcer. chaski esopohgeial Symptoms: nausea. left arm pain. neck pain. hand pain with flairs. sleep disruption. numbness of left UE positional while you sleep. anxiety. antions Pain: Pt states her pain level neck is 9/10 and left arm pain with numbness in left UE. pt states she uses medicinal marijuana for her pain control. Work History: Pt states she hasn't worked in about 6 years. 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 pt states she stopped working when she developed psoriasis. Pt states it took about 2 years to clear up and returned to work for about a year working 5-6 clients a day sometime 5-6 days a week. 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 She feels she will have the ability to sit or stand when she needs. Behavioral: pt cooperative and motivated ADLS: Pt states she was recently displaced from her home of 6 years. Pt is curently residing in a [facility] apt. with her 16 year old son. pt states she has one step entry. pt states she has a walk in shower- pt states she is ind. with bathing and dressing. pt drives ind. pt does all cooking cleaning grocey shopping. ROM: pt demo with ROM WFL. pt reports pain with neck Strength: pt demo with left shoulder flex at 4/5. pt demo with right shoulder flex 4+/5 Right Director Style Strength Average: 58.33 Right Director Style Strength Percentile: 19% Left Director Style Strength Average: 13.33 Left Director Style Strength Percentile: <.08 Right Lateral Pinch Average: 6.00 Right Lateral Pinch Percentile: <10% Left Lateral Pinch Average: 4.00 Left Lateral Pinch Percentile: <10% Right Tripod Pinch Average: 3.00 Right Tripod Pinch Percentile: <10% Left Tripod Pinch Average: 1.33 Left Tripod Pinch Percentile: <10% Comments: 66 heart rate Sensation: [place] Monofilament sensory testing. right hand 2.83 interpretation Normal sensation. left 2.83 interpretation Normal sensation Fine Motor: 9 hole peg. right 23.0 sec 10%. left 21.0 se=50% Balance: no loss of balanced noted during assessment pt demo with normal balance Bending: pt demonstrate the ability to bend forward 3/3, 10/10 and 10/10 rapidly- pt did hold her lower back with her right hand while performing 10x rapidly. low back pain while bending 7/10 pt can bend forward on a occasional ability. Squatting: pt demonstrated the ability to squat 3/3, 10/10 and 10/10 rapidly,. pt did use external support for tasks. pt can squat on an occasional ability. pt reported neck 9/10 Kneeling: pt demonstrated the ability to kneel one time with leaning with external support. very low occasional ability Reaching out/up: pt demonstrated the ability to reach out/up 3/3 and 10/10 and 10/10 rapidly-. pt can reach up out on a frequent ability. Walking: pt ambulated 15 min with a reciprocal gait pattern with good gait speed. pt can ambulate on a occasional ability. Standing: pt demonstrated the ability to stand 6 min with shifting body weight. pt can stand on a occasional ability Sitting: pt demonstrated the ability to sit for 40 min with no apparent or expressed discomfort. pt can sit on a frequent ability Climbing Stairs: pt demonstrated the ability ascend and descend 10 steps with use of hand rail and a reciprocal step pattern. Floor Lift: pt demonstrated the ability to lift 35# maximally from this level with fair lifting mechanics. Knee Lift: pt demonstrated the ability to lift 35# maximally from this level with fair lifting mechanics. Waist Lift: pt demonstrated the ability to lift 25# maximally from this level with fair lifting mechanics. Shoulder Lift: pt demonstrated the ability to lift 15# maximally from this level with fair lifting mechanics. Overhead Lift: pt demonstrated the ability to lift 5# maximally from this level with fair lifting mechanics. Carrying: pt demonstrated the ability to lift 15# with good ability Comments: pt tolerated assessment well and is motivated to obtain a job.
--- NOTE | 2021-06-11 14:42 | HP.OTFCE.D ---
FCE D/C Summary - Discharge JANNETTE VIEIRA was seen for a one time visit for an FCE on 06/01/21 and is discharged.
== END 2021-06-01 19:00 | disposition home or self-care (01) ==
LOC: OT 08:45
PROVIDERS: PCP Nurse Practitioner Primary Care; Referring Provider Anesthesiology Pain Medicine; Visit Provider Anesthesiology Pain Medicine
DX: M25.559 Pain in unspecified hip (principal); M51.37 Other intervertebral disc degeneration, lumbosacral region; M51.36 Other intervertebral disc degeneration, lumbar region; M16.0 Bilateral primary osteoarthritis of hip
CPT/HCPCS: 97750

== ENCOUNTER 2022-08-24 11:22 | Outpatient (CLI) | payer MEDICAID, SELFPAY ==
--- NOTE | 2022-08-24 11:28 | RAD_ITS ---
STUDY: X-RAY - CERVICAL SPINE REASON FOR EXAM: Female, 51 years old. DISC DEGENERATION TECHNIQUE: 3 view(s) of the cervical spine were obtained. COMPARISON: None FINDINGS: Normal anterior atlantoaxial articulation. Normal odontoid process. Normal cervical lordosis. There is multi-level endplate spondylosis. There is multi-level degenerative disc disease with multilevel disc space narrowing. Normal visualized intervertebral neuroforamina. The soft tissue structures are unremarkable. RAD/Cerv Spine 2 or 3 Views IMPRESSION: Moderate degenerative disc disease lower cervical spine. Electronically Signed: Alexy Burt MD at 16:53 EST ,
--- NOTE | 2022-08-24 11:35 | RAD_ITS ---
STUDY: X-RAY - LUMBAR SPINE REASON FOR EXAM: Female, 51 years old. DISC DEGENERATION TECHNIQUE: 3 view(s) of the lumbar spine were obtained. COMPARISON: 11/01/2019 FINDINGS: Normal lumbar lordosis. Mild levoscoliosis centered at L3. 2 mm of anterolisthesis of L4 on L5. Normal vertebral bodies and endplates. Normal disc space heights. Facet hypertrophy in the lower lumbar spine consistent with degenerative disc disease. The soft tissue structures are unremarkable. RAD/Lumbar Spine 2 or 3 Views IMPRESSION: Mild levoscoliosis and degenerative disc disease as described above. Electronically Signed: Alexy Burt MD at 17:02 EST ,
== END 2022-08-24 23:59 | disposition home or self-care (01) ==
LOC: RAD 11:26
PROVIDERS: PCP Family Medicine; Referring Provider Anesthesiology Pain Medicine; Visit Provider Anesthesiology Pain Medicine
DX: M51.37 Other intervertebral disc degeneration, lumbosacral region (principal); M43.16 Spondylolisthesis, lumbar region; M50.320 Other cervical disc degeneration, mid-cervical region, unspecified level; M41.9 Scoliosis, unspecified
CPT/HCPCS: 72040; 72100

== ENCOUNTER 2022-08-26 08:49 | Outpatient (RCR) | payer MEDICAID, SELFPAY ==
--- NOTE | 2022-08-26 14:29 | HP.PTEVAL ---
Patient's Visit Information JANNETTE VIEIRA is a 51 year old F referred to Physical Therapy by Dr. Arpan Branham MD with a diagnosis of Neck pain and back pain. Date of Evaluation: 08/26/22 Physical Therapist: Morgan Martinez - Visit Plan Frequency: 2x /Week Duration: 6 Weeks Plan: Continue with improving neck/scapular strength and core/back/hip strength as well. Educated pt. on proper lifting mechanics also. Use manual therapy and traction as needed. - Subjective Pt. is a 51 y.o. female who has been having neck and back pain for a few years with no specific injury that she is aware of. Her PLOF includes history of bilateral hip replacements in the last couple of years. She reports that her whole left side with just give out on her at times and she doesn't know why. Pt. had recent x-ray of her neck and back but is not sure of the results. Pt. denies any change in her bowel or bladder function. Pt. does get some numbness in her left arm when she is sleeping otherwise she is good. Pt. has difficulty with sitting longer than 20 minutes, lifting things, pushing/pulling, looking down, occasionally sleeping, and housework. Pt. is currently unemployed. Her goal with physical therapy is to get stronger to be able to get a job. She has had previous physical therapy for her hips. Pt. rates neck pain at 8/10, at worst 9/10, at best 2/10 and describes the pain as dull and achy. Pt. is not taking any pain medication currently. Her PMH includes bilateral hip replacements and appendectomy. Pt. hobbies include is spending time with his son and his activities and walking. - Objective Posture- Good posture in standing. Palpation- Mild tenderness over lower cervical spine area. Neck AROM- WNL for all motions. Shoulder AROM- WNL bilaterally for all motions. Left shoulder strength- grossly 4+/5 for all motions. Right shoulder strength- grossly 5/5 for all motions. Left epic prelude analyst strength- 22 lbs, 24 lbs, 28 lbs. Right epic prelude analyst strength- 55 lbs, 50 lbs, 58 lbs. Lumbar AROM- WNL for all motions. Hip PROM- WNL bilaterally. Left LE strength grossly 4+/5 for all motions. Right LE strength grossly 4+/5 for all motions. Gait- Pt. ambulates with no gait deviations. - Balance/Special Test Scores Oswestry Neck Score: 29 - Goals Goal 1:: Pt. will be able to sit for at least 30 minutes with no back pain. Goal Time Frame: 4-6 Weeks Goal 2:: Pt. will be able to sleep a full night with no neck or back pain. Goal Time Frame: 4-6 Weeks Goal 3:: Pt. will be able to lift at least 30# with proper body mechanics and no neck or back pain. Goal Time Frame: 4-6 Weeks Goal 4:: Pt. will be able to look down with no neck pain. Goal Time Frame: 4-6 Weeks Goal 5:: Pt. will rate neck and back pain at worst at 3/10 with ADL's. Goal Time Frame: 4-6 Weeks Goal 6:: Pt. will improve neck Oswestry disability < 40% impairment in order to improve ADL's. Goal Time Frame: 4-6 Weeks - Rehabilitation Potential Physical Therapy Diagnosis: Decreased neck strength and core/back/hip strength and pain Rehabilitation Potential: Good - Anticipated Interventions Patient/Client Instruction: Educate patient on: Condition, Plan of Care, Benefits of Fitness Program For the Purpose of:: To improve ability to perform ADL's, To improve performance and independence with ADL's, To assume or resume ADL's, To improve tolerance to ADL's Therapeutic Exercise to Include: Strength training, Body mechanics, Postural training, Dynamic Lumbar Stabilization, Scapular Strength/Stabilization Comment: Focus on neck/scapular strengthening and core, back, and hip strengthening. For the Purpose of:: To decrease pain, To improve ability to perform ADL's, To improve performance and independence with ADL's, To assume or resume ADL's, To improve tolerance to ADL's Functional Training to Include: ADL Training For the Purpose of:: To improve ability to perform ADL's, To improve performance and independence with ADL's, To assume or resume ADL's, To improve tolerance to ADL's Manual Therapy Techniques to Include: Mobilization, Passive ROM, Soft tissue mobilization For the Purpose of:: To decrease pain, To improve ability to perform ADL's, To improve performance and independence with ADL's, To increase flexibility/ROM, To assume or resume ADL's, To improve tolerance to ADL's Cryotherapy (ice pack, ice massage): Yes Thermo therapy (hot pack): Yes Intermittent cervical traction: Yes For the Purpose of:: To decrease pain, To decrease swelling/inflammation Thank you for the opportunity to evaluate your patient. For Medicare and Medicare HMO plans, please review the plan of care and approve it. It will need to be FAXED BACK to us at [phone] for Medicare purposes. For Medicare only, by signing this I certify the plan of care. Please let me know if there are questions or concerns regarding this plan of care. Physician Signature: Date:
--- NOTE | 2022-11-30 15:51 | HP.PT.NRP ---
JANNETTE VIEIRA was seen in my office for initial evaluation on 08/26/22. The following Plan of Care was established for this patient: Initial Frequency: 2x /Week Initial Duration: 6 Weeks Patient/Client Instruction: Educate patient on: Condition, Plan of Care, Benefits of Fitness Program For the Purpose of:: To improve ability to perform ADL's, To improve performance and independence with ADL's, To assume or resume ADL's, To improve tolerance to ADL's Therapeutic Exercise to Include: Strength training, Body mechanics, Postural training, Dynamic Lumbar Stabilization, Scapular Strength/Stabilization For the Purpose of:: To decrease pain, To improve ability to perform ADL's, To improve performance and independence with ADL's, To assume or resume ADL's, To improve tolerance to ADL's Functional Training to Include: ADL Training For the Purpose of:: To improve ability to perform ADL's, To improve performance and independence with ADL's, To assume or resume ADL's, To improve tolerance to ADL's Manual Therapy Techniques to Include: Mobilization, Passive ROM, Soft tissue mobilization For the Purpose of:: To decrease pain, To improve ability to perform ADL's, To improve performance and independence with ADL's, To increase flexibility/ROM, To assume or resume ADL's, To improve tolerance to ADL's Cryotherapy (ice pack, ice massage): Yes Thermo therapy (hot pack): Yes Intermittent cervical traction: Yes For the Purpose of:: To decrease pain, To decrease swelling/inflammation This patient was last seen in our office 08/26/22. Pertinent comments regarding their Physical therapy will appear below: Pt seen for initial eval and POC established and approval received. Pt did not return phone calls to schedule. At this point, it has been over two months and I will discontinue due to nonattendance. At this point I will be discontinuing this patient from physical therapy. I would be happy to see this patient again in the future if found appropriate by the physician. Thank you! Vadim Calderon, DPT, OCS, CSCS Balance/Gait/Functional tests - Balance/Special Test Scores Oswestry Neck Score: 29
== END 2022-08-26 19:00 | disposition home or self-care (01) ==
LOC: PT 08:49
PROVIDERS: PCP Family Medicine; Referring Provider Anesthesiology Pain Medicine; Visit Provider Anesthesiology Pain Medicine
DX: M54.9 Dorsalgia, unspecified (principal); M54.2 Cervicalgia
CPT/HCPCS: 97110; 97162

== ENCOUNTER 2022-09-21 13:10 | Outpatient (RCR) | payer MEDICAID, SELFPAY ==
--- NOTE | 2022-09-22 15:35 | HP.FCE ---
Floor (Occasional 1-33% of Day): 45# Floor (Frequent 34-66% of Day): 22.5# Floor (Constant 67-100% of Day): NA Floor PDL: Light-Medium Knee (Occasional 1-33% of Day): 45# Knee (Frequent 34-66% of Day): 22.5# Knee (Constant 67-100% of Day): NA Knee PDL: Light-Medium Waist (Occasional 1-33% of Day): 35# Waist (Frequent 34-66% of Day): 17.5# Waist (Constant 67-100% of Day): NA Waist PDL: Light-Medium Shoulder (Occasional 1-33% of Day): 25# Shoulder (Frequent 34-66% of Day): 12# Shoulder (Constant 67-100% of Day): NA Overhead (Occasional 1-33% of Day): 10# Overhead (Frequent 34-66% of Day): NA Overhead (Constant 67-100% of Day): NA Overhead PDL: Sedentary Comments: lifting from floor and knee levels a LIGHT MEDIUM PHYSICAL DEMAND LEVEL. lifting from waist and shoulder level at LIGHT MEDIUM PHYSICAL DEMAND LEVEL. lifting overhead level a SEDENTARY PHYSICAL DEMAND LEVEL Bending: Occasional Ability (1-33% of day) Squatting: Occasional Ability (1-33% of day) Kneeling: Occasional Ability (1-33% of day) Reaching out: Frequent Ability (34-66% of day) Reaching up: Frequent Ability (34-66% of day) Sitting: Frequent Ability (34-66% of day) Walking: Frequent Ability (34-66% of day) Standing: Frequent Ability (34-66% of day) Duration Sedentary Sedentary Light Light Light Medium Medium Medium Heavy Very Heavy Heavy Occasional (0-33% of day) Frequent (34-66% of day) Constant (67-100% of day) 10 # Negligible Negligible 15 # 8 # Negligible 20 # 10# Negli. 35 # 18 # 7 # 50 # 25 # 10 # 75 # 100 # >100 # 38 # 50 # >50 # 15 # 20 # >20 # Weight:: 81.647 kg Medical History Including Restrictions: This pt states she was in good health until 9 years ago. Pt states she gets psoriasis outbreak by a dermatologists but has not been able to mtg. well. Pt states she see dr. rea for low back and neck pain mtg. pt states she has had two MRI on her neck awhile about 3-4 years ago . pt states she had bilateral THR by dr. Castillo 2019 and 2020- pt states she recovered well from her hip surgery. pt did undergo therapy following both hip replacements. Pt states she sees a chiropractor for thoracic and lumbar and neck. pt states she sees him once a month. pt states she does exercise on a regular basis. pt states she has noticed increase in left wrist/thumb pain with activity. pt states with increase activity and movement pt starts with muscle cramps and progresses of pain and stiffness with increase activity where she is struggling performing her job duties. Diagnoses: Back pain. psoriatic arthritis. Depression (counseling). Anxiety Symptoms: Body cramps. Pain. weakness. body stiffness. Difficulty sleeping. left wrist/thumb pain Pain: pt reports right wrist/thumb pain 5/10 but states pain increases with use of grasping or lifting items. Hanane pain scale score. ? Sensory Score = 26 points. ? Affective Score = 1 point. ? Evaluative Score = 4 points. ? Miscellaneous Score = 10 points. ? Pain Rating Index (BLANK) = 41 points. ? Present Pain Intensity (PPI) = 3 points. ? Pain Score Interpretation: The higher the score, the greater the perceived pain. The MPQ consists of 20 sections that group a list of 78 descriptive words. The questionnaire can also be divided into four domains: Sensory (sections 1-10), Affective (sections 11-15), Evaluative (section 16) and Miscellaneous (sections 17-20). There is an additional question, on a 5 item Likert scale, about present pain intensity. The sum of points from the 20 sections determines a Pain Rating Index (BLANK) and the interpretation states that the higher the score, the greater the perceived pain. References. Ari Norton, Delia WS: On the language of pain. Anesthesiology 1971; 34:50?9. Ari Norton. The Hanane Pain Questionnaire: Major properties and scoring methods. Pain. 1975; 1: 277-299. Work History: Pt was last employed at [email or web address] working at [employer] working about 7.5 hours(35 hours a week) pt states she worked there for almost 4 months - pt has lift requirement up to 50# . pt states she would become more painful with tasks and was unable to tolerate this position. 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 pt worked as a massage therapist for years Behavioral: Pt was cooperative throughout assessment. ADLS: Pt currently living on [address] apt. pt reports she is ind. with ADLs and IADLs. pt states she drives and can perform all her ADLs and IADls at her own pace. Pt does exercise on regular basis. Pt does not use ad. eq. ROM: pt demo with left thumb CMC and MP instability decreasing strength and increasing pain. Neck AROM- WNL for all motions. Shoulder AROM- WNL bilaterally for all motions. Lumbar AROM- WNL for all motions. Hip AROM- WNL bilaterally Strength: testing with Fit2 peak force in pounds of resistance. right shoulder flexion right 9# left 10#. right shoulder extension 14# left 20#. right biceps 15# left 16#. right triceps 17# left 17#. right hip flexion 12# left 13#. right quad 17# left 15#. right hamstring 19# left 20# Right Pipelines Superintendent Strength Average: 50.00 Right Pipelines Superintendent Strength Percentile: 9% Left Pipelines Superintendent Strength Average: 26.00 Left Pipelines Superintendent Strength Percentile: .8% Right Lateral Pinch Average: 4.66 Right Lateral Pinch Percentile: <10% Left Lateral Pinch Average: 0 Left Lateral Pinch Percentile: unable due to left thumb pain Right Tripod Pinch Average: 4.00 Right Tripod Pinch Percentile: <10% Left Tripod Pinch Average: 0 Left Tripod Pinch Percentile: unable due to left thumb pain Sensation: [place] monofilament sensory testing. right hand 2.83 left 2.83 interpretation of normal sensation. Fine Motor: 9 hole peg test. right 22.29 = 25% for her age. left 31.74 = 0% for her age. pt demo with a decrease speed of left hand compared to other females her age. pt demo with left CMC instability possible cmc OA deformities noted) Balance: No loss of balance noted throughout session. Bending: Pt demo the ability to bend forwarded 3/3x, 10/10x and 10/10x rapidly. pt reports pain with tasks of low back and hips states pain will be worse tomorrow. pt can bend forwarded on occasional ability Squatting: Pt demo the ability to squat 3/3x, 10/10x and 10/10x rapidly. pt reports pain with tasks of low back and hips states pain will be worse tomorrow. pt can squat on occasional ability Kneeling: Pt demo the ability to kneel 3/3x, 10/10x and 10/10x rapidly. pt reports pain with tasks of low back and hips states pain will be worse tomorrow. pt can kneel on occasional ability Reaching out/up: pt demo the ability to reach out/up 3/3x, 10/10x and 10/10x rapidly. pt performed while standing. pt can perform on frequent ability. Walking: pt ambulates IND with a reciprocal gait pattern and good speed. pt ambulated 15 min with no decrease in speed. pt also states she walks about 2 miles a day. pt can ambulate on a frequent ability. Standing: pt demo the ability to stand for 15 min with shifting body weight. pt can stand on frequent ability Sitting: pt demo the ability to sit for 40 min with shifting her body weight. no reported discomfort. pt can sit on frequent ability sifting body weight Climbing Stairs: pt demo the ability to ascend and descend 10 steps with a reciprocal step pattern. Floor Lift: pt demo the ability to lift 45# maximally from this level. pt demo good lifting mechanics. PHYSICAL DEMAND LEVEL AT LIGHT MEDIUM. Knee Lift: pt demo the ability to lift 45# maximally from this level. pt demo good lifting mechanics. PHYSICAL DEMAND LEVEL AT LIGHT MEDIUM. Waist Lift: pt demo the ability to lift 35# maximally from this level. pt demo good lifting mechanics. PHYSICAL DEMAND LEVEL AT LIGHT MEDIUM. Shoulder Lift: pt demo the ability to lift 25# maximally from this level. pt demo good lifting mechanics. PHYSICAL DEMAND LEVEL AT LIGHT MEDIUM. Overhead Lift: pt demo the ability to lift 10# maximally from this level. pt demo good lifting mechanics. PHYSICAL DEMAND LEVEL AT SEDENTARY Carrying: pt demo the ability to carry 25# for 40 feet with good lifting mechanics. Comments: pt has increase in left wrist/thumb pain 05/29. pt called next day 09/22/22 following FCE reported increase pain if left hand causing no ability to button pants or turn knob on doors-. Low back and left thigh and left side painful. pt called to inform therapist following activity she has difficulty and deficits next day.
--- NOTE | 2022-09-22 15:36 | HP.OTFCE.D ---
FCE D/C Summary - Discharge JANNETTE VIEIRA was seen for a one time visit for an FCE on 09/21/22 and is discharged.
== END 2022-09-21 19:00 | disposition home or self-care (01) ==
LOC: OT 13:10
PROVIDERS: PCP Family Medicine; Visit Provider Anesthesiology Pain Medicine
DX: M54.9 Dorsalgia, unspecified (principal)
CPT/HCPCS: 97750

== ENCOUNTER 2024-11-09 12:40 | Emergency (ER) | payer MEDICAID, SELFPAY ==
[2024-11-09 12:41] VITALS: BP 157/94; PULSE 80; RESP 18; TEMP 36.3; O2SAT 100; BMI 27.1
[2024-11-09 13:37] LABS: Absolute Lymphocyte Count 1.61 X10^3/uL (0.83-4.51); Absolute Neutrophil Count 3.6 X10^3/uL (2.0-7.7); Basophil# 0.04 X10^3/uL; Basophil% 0.7 % (0-1); Eosinophil# 0.16 X10^3/uL; Eosinophils% 2.7 % (0-5); Hemoglobin 12.2 g/dL (12.0-15.0); Lymphocyte # 1.61 X10^3/ul (0.83-4.51); Lymphocyte % 26.8 % (19-41); Mean Corp Hgb Conc 31.3 g/dL (32-36); Mean Corpuscular Hgb 26.8 pg (27.0-32.0); Mean Corpuscular Volume 85.5 fL (81-99); Mean Platelet Vol. 10.2 fl (6.2-12.0); Monocyte# 0.54 X10^3/uL; NRBC Flagged by Analyzer 0 % (0-5); Neutrophil # 3.63 X10^3/uL (2.7-7.7); Neutrophil % 60.5 % (47-70); Platelet Count 270 K/mm3 (150-450); RBC Distribution Width CV 15.2 % (11.6-14.6); RBC Distribution Width SD 47.9 fl (35.1-43.9); Red Blood Count 4.56 M/mm3 (4.2-5.4)
--- NOTE | 2024-11-09 13:46 | EKG12_ITS ---
Test Reason : MEDICAL CLEARANCE Blood Pressure : */* mmHG Vent. Rate : 64 BPM Atrial Rate : 64 BPM P-R Int : 118 ms QRS Dur : 78 ms QT Int : 408 ms P-R-T Axes : 26 7 61 degrees QTcB Int : 420 ms Normal sinus rhythm with sinus arrhythmia Normal ECG Confirmed by Ector Noriega ([id number]), assignment editor HERNANDEZ BLOOD ([id number]) on 11/12/2024 9:52:56 AM Referred By: Prince Ramirez Confirmed By: Ector Noriega
[2024-11-09 14:10] LABS: Alcohol, Blood (Medical)-Serum < 3.0 mg/dL
[2024-11-09 14:13] LABS: Anion Gap 5 (5-15); BUN 9 mg/dL (7-18); BUN/Creat Ratio 14.6 RATIO (10-20); Calcium,Total 8.6 mg/dL (8.5-10.1); Chloride 105 mmol/L (98-107); Creatinine, Serum 0.62 mg/dL (0.55-1.02); EST Glomerular Filtration Rate 108 mL/min (>60); Est Glom Filt Rate - Afr Amer 131 mL/min (>60); Estimated Creatinine Clearance 127.89 ml/min; Glucose 129 mg/dL (74-106); Potassium 3.6 mmol/L (3.5-5.1); Sodium Level 138 mmol/L (136-145)
[2024-11-09 14:20] LABS: Internal QC Validated? YES +Cl - CLEAR BKGD; Pregnancy, Serum, hCG Quali. NEGATIVE Negative
[2024-11-09 14:23] LABS: Amphetamine Urine POSITIVE (<1000 ng/mL); Barbiturate Urine NEGATIVE (< 200 ng/mL); Benzodiazepine Urine NEGATIVE (< 200 ng/mL); Cocaine Urine NEGATIVE (< 300 ng/mL); Ecstacy Urine NEGATIVE (< 500 ng/mL); Methadone Urine NEGATIVE (< 300 ng/mL); Opiates Urine NEGATIVE (< 300 ng/mL); PCP Urine NEGATIVE (< 25 ng/mL); THC Urine NEGATIVE (< 50 ng/mL); Vista UDS pH Range 6
[2024-11-09 14:35] LABS: AST(SGOT) 23 U/L (15-37); Alanine Aminotransfer ALT/SGPT 24 U/L (13-56); Albumin, Serum 3.4 g/dL (3.2-5.0); Alkaline Phosphatase 75 U/L (45-117); Bilirubin, Direct 0.25 mg/dL (0.00-0.30); Globulin 3.6 g/dL (2.2-4.2)
[2024-11-09 14:37] LABS: CPK Total, Creatine Kinase 216 U/L (26-192)
[2024-11-09 14:52] VITALS: BP 154/78; PULSE 71; RESP 15; O2SAT 100
--- NOTE | 2024-11-09 14:52 | EDS_ITS ---
HPI HPI - Psych History of Present Illness Chief Complaint: Mental Health Informant: patient Narrative Narrative: 53-year-old female brought to the emergency room for psychiatric assessment/clearance. Patient was assessed by crisis today who feels the patient needs to be psychiatrically admitted for stabilization. There is been manic reports and reports of her threatening individuals. Patient herself cannot tell me over the course of 20 minutes why she is in the emergency department. She gives long flight of ideas regarding past events. There is report of methamphetamine use [facility]SH [facility] Medical History Hypertension Home Medications ?Medication ?Instructions ?Recorded ?Last Taken ?Type lisinopril 10 1 tab PO DAILY 05/28/2009/19 04:00 History mg-hydrochlorothiazide 12.5 mg 1 TAB tablet omeprazole 40 mg capsule,delayed 40 mg PO DAILY 10/07/20 04:00 History release 40 MG omega-3 fatty acids-fish oil 300 1 ea PO DAILY 1 Unknown History mg-1,000 mg capsule turmeric 400 mg capsule 400 mg PO DAILY 09/23/20 Unk nown History vitamin B complex 1 ea PO DAILY 09/23/20 Unkno wn History acetaminophen 500 mg tablet 1,000 mg (2 x 500 mg) PO Q 6H PRN 10/07/20 Unknown Rx #100 tabs cyclobenzaprine 10 mg tablet 10 mg PO TID PRN muscle s pasm #30 10/08/20 Unknown Rx tabs ustekinumab 90 mg/mL subcutaneous mg subcut 11/12/20 U nknown History syringe Allergy/AdvReac Type Severity Reaction Status Date / Time codeine Allergy Hives Verified 11/09/24 12:41 Family History Mother Cancer Heart disease CVA (cerebral vascular accident) Diabetes Hypertension Surgical History History of appendectomy Social History (Updated 11/09/24 @ 14:[address] Prince Ramirez DO) Smoking Status: Former smoker quit date: 09/19/00 alcohol intake: current substance use type: amphetamines ROS ROS ED Constitutional Constitutional ED: Denies chills, fever(s) or weight loss Eyes Eyes: Denies change in vision or diplopia ENT ENT ED: Denies ear pain, rhinorrhea or sore throat Cardiovascular Cardiovascular: Denies chest pain, orthopnea, palpitations or racing heartbeat Respiratory/Chest Respiratory/Chest: Denies cough, dyspnea or orthopnea Gastrointestinal Gastrointestinal: Denies abdominal pain, diarrhea, nausea or vomiting Genitourinary Genitourinary ED: Denies dysuria, hematuria or urinary frequency Musculoskeletal Musculoskeletal: Denies arthralgias or myalgias Integumentary Denies abscess or rash Neurologic Neurologic: Denies headache(s) or weakness Psychiatric Psychiatric: Reports depression; Denies anxiety, suicidal ideation or suicidal thoughts Endocrine Endocrinology: Denies polydipsia, polyphagia or polyuria Allergic/Immunologic Allergic/Immunologic ED: Denies mouth swelling, tongue swelling or urticaria EXAM Physical Exam Const Vital Signs: 11/09/24 12:41 Temperature 97.3 F L Temperature Source Temporal Pulse Rate 80 Respiratory Rate 18 Blood Pressure 157/94 H Blood Pressure Mean 115 Pulse Ox 100 Oxygen Delivery Method Room Air Positive well nourished and well developed General Appearance ED: well developed HEENT Reports normocephalic, head/scalp atraumatic and moist mucous membranes Eyes PERRL and EOMs intact bilaterally Neck no lymphadenopathy, supple and no JVD Resp normal respiratory effort and clear to auscultation bilaterally Cardio regular rate, regular rhythm and no murmurs GI normal to inspection, nondistended, normoactive bowel sounds and non-tender Palpation: soft Back/Spine no CVA tenderness and normal ROM Back/Spine Narrative: . Extremity General Extremety ED: Negative for edema General Extremity: Negative for edema Neuro oriented x3 and CN's II-XII intact bilaterally Sensorium / Orientation: alert Psych Psych Narrative: Patient demonstrates pressured grandiose speech. Flight of ideas. Nonlinear thinking. She is tearful at times elevated at others all within a short period of time. Despite multiple attempts at redirection the patient cannot tell me why she is in the emergency department. Appearance: grossly normal Skin no rashes or lesions noted and no wounds MDM MDM MDM Narrative Medical decision making narrative: Differential diagnosis includes but not limited to schizophrenia bipolar disorder acute azar or psychosis illicit drug use Basic blood work is essentially negative. CK level is 216. She is positive for amphetamines. Alcohol is negative. EKG is a sinus rhythm with a rate of 64 bpm. No significant QT prolongation. I spoke with crisis who is in agreement the patient needs to be psychiatrically admitted. We are going to work towards this goal. I will fill out a pink slip. History & Record Review Discussion w/independent historian: Patient Lab Data Attestation: I reviewed the patient's lab results. Labs: Laboratory Results - last 24 hr 11/09/24 12:26 WBC 6.0 RBC 4.56 Hgb 12.2 Hct 39.0 MCV 85.5 MCH 26.8 L MCHC 31.3 L RDW Std Deviation 47.9 H RDW Coeff of Hesham 15.2 H Plt Count 270 MPV 10.2 Immature Gran % (Auto) 0.300 Neut % (Auto) 60.5 Lymph % (Auto) 26.8 [place]ill % (Auto) 9.0 Eos % (Auto) 2.7 Baso % (Auto) 0.7 Absolute Neuts (auto) 3.6 Absolute Lymphs (auto) 1.61 Nucleated RBC % 0 Sodium 138 Potassium 3.6 Chloride 105 Carbon Dioxide 28.0 Anion Gap 5 BUN 9 Creatinine 0.62 Estim Creat Clear Calc 127.89 Est GFR (MDRD) Af Amer 131 Est GFR (MDRD) Non-Af 108 BUN/Creatinine Ratio 14.6 Glucose 129 H Calcium 8.6 Total Bilirubin 0.90 Direct Bilirubin 0.25 AST 23 ALT 24 Alkaline Phosphatase 75 Total Creatine Kinase 216 H Total Protein 7.0 Albumin 3.4 Globulin 3.6 Serum , Qual NEGATIVE Urine Opiates Screen NEGATIVE Urine Methadone Screen NEGATIVE Ur Barbiturates Screen NEGATIVE Ur Phencyclidine Scrn NEGATIVE Ur Amphetamines Screen POSITIVE H MDMA (Ecstasy) Screen NEGATIVE U Benzodiazepines Scrn NEGATIVE Urine Cocaine Screen NEGATIVE U Cannabinoids Screen NEGATIVE Ur Drug Screen Comment Ethyl Alcohol < 3.0 Management Discussion w/another healthcare provider: Behavioral health Discharge Plan Triage Chief Complaint: Mental Health ED Provider: Prince Ramirez Dx/Rx/DC Orders Prescriptions: No Action omeprazole 40 mg capsule,delayed release(DR/EC) 40 mg PO DAILY Patient Comments: take 1 capsule by mouth once daily lisinopril-hydrochlorothiazide 10-12.5 mg tablet 1 tab PO DAILY Patient Comments: take 2 tablets by mouth once daily ustekinumab 90 mg/mL syringe SC vitamin B complex 1 EACH capsule 1 ea PO DAILY omega-3 fatty acids-fish oil 1 EACH capsule 1 ea PO DAILY turmeric 400 MG capsule 400 mg PO DAILY acetaminophen 500 MG tablet 1,000 mg PO Q6H PRN Qty: 100 0RF cyclobenzaprine 10 mg tablet 10 mg PO TID PRN (Reason: muscle spasm) Qty: 30 1RF Primary Care Provider: Alicia Cobian Referrals: Alicia Cobian MD [Primary Care Provider] - Print Language: Citizen [place]
--- NOTE | 2024-11-09 17:15 | ED.RN ---
pt. speaking on phone with son, this RN gave her her cellphone
--- NOTE | 2024-11-09 17:44 | ED.RN ---
pt. voiced frustrations with meal tray that was given. Pt. asked for a vegetarian tray and receieved a black hernández burger, salted pretzels, a fruit cup. pt. stated she could not eat the pretzels with salt, she requested a baked potato and a salad. this Rn informed she could try and order those items but that she could not use silverware. Those meal items were ordered.
--- NOTE | 2024-11-09 17:52 | ED.RN ---
pt. requesting to speak to a social service liaison. Samantha coming to bedside to talk with pt. pt. has been told she will stay in the ER until she is placed in a psychiatric facility. Pt. has now been told this twice and continues to make comments about not being updated on what is happening.
--- NOTE | 2024-11-09 18:08 | CM.ED ---
Social Work SW met with patient and attempted to reeducate on reason for admission and placement, however patient had a difficult time following conversation. Patient voiced frustration with having to stay and noise in the ER. SW was unable to get patient to sit, patient was pacing room and stating she did not mean to be difficult but this was no place for someone with mental health concerns. Personal space given. Samantha Calhoun, [employer], SH[employer] TAILOR APPRENTICE
--- NOTE | 2024-11-09 18:36 | ED.RN ---
PT ACCEPTED [facility] DAO N2N [id number]
[2024-11-09] MEDS: Zolpidem Tartrate 5 MG Tablet PO (21:44)
[2024-11-09 21:46] VITALS: PULSE 76; RESP 18; O2SAT 98
[2024-11-10] MEDS: Ziprasidone IM 20 MG/ML VIAL IM (01:47)
[2024-11-10 04:20] VITALS: BP 111/80; PULSE 82; RESP 14; O2SAT 100
[2024-11-10 04:21] VITALS: BP 111/80; PULSE 82; RESP 14; TEMP 36.4; O2SAT 100
== END 2024-11-10 10:48 ==
PROVIDERS: Emergency Provider Emergency Medicine; PCP Family Medicine; Referring Provider Emergency Medicine; Visit Provider Emergency Medicine
DX: F99 Mental disorder, not otherwise specified (principal); Z87.891 Personal history of nicotine dependence; I10 Essential (primary) hypertension; Z79.899 Other long term (current) drug therapy; Z90.49 Acquired absence of other specified parts of digestive tract
CPT/HCPCS: 80048; 80076; 80307; 82077; 82550; 84703; 85025; 93005; 96372; 99283; J3486